=== PATIENT | male | born 1950 | race Caucasian/White ===

== ENCOUNTER 2019-07-19 17:01 | Emergency (ER) | payer MEDICARE, OTHER ==
[~2019-07-19] VITALS: Ht 180.3 cm; Wt 83.9 kg
[2019-07-19] MEDS ORDERED: SODIUM CHLORIDE 0.9% 500 ML IV ONE (17:12)
[2019-07-19 17:20] VITALS: BP 127/81
[2019-07-19 18:15] LABS: Basophils # (auto) 0 uL; Basophils % (auto) 0.6 % (0.0-2.0); Eosinophils # (auto) 0.1 uL; Eosinophils % (auto) 1.9 % (0.0-7.0); Hematocrit 42.3 % (41.0-53.0); Hemoglobin 14.5 g/dL (13.5-17.5); Lymphocytes % (auto) 26.8 % (10.0-50.0); Mean Corpuscular Hemoglobin 30.2 pg (28.0-32.0); Mean Corpuscular Hgb Conc. 34.3 g/dL (32.0-36.0); Mean Corpuscular Volume 88.1 fL (80.0-100.0); Monocytes # (auto) 0.4 uL; Monocytes % (auto) 5.6 % (0.0-12.0); Neutrophils # (auto) 4.8 uL; Neutrophils % (auto) 65.1 % (37.0-80.0); Platelet Count (auto) 180 10^3/uL (140-450); White Blood Cell 7.3 10^3/uL (4.4-10.8)
[2019-07-19 18:32] LABS: Alanine Aminotransferase 25 U/L (16-61); Albumin 3.3 g/dL (3.4-5.0); Anion Gap 6 (5-15); Aspartate Aminotransferase 24 U/L (15-37); BUN/Creatinine Ratio 24.2; Blood Urea Nitrogen 24 mg/dL (7-18); Calcium 8.9 mg/dL (8.5-10.1); Carbon Dioxide 28 mmol/L (21-32); Chloride 107 mmol/L (98-107); GFR African American 96 mL/min; GFR Non-African American 79 mL/min; Glucose 88 mg/dL (74-106); Potassium 4.1 mmol/L (3.5-5.1); Sodium 141 mmol/L (136-145)
[2019-07-19 18:37] LABS: Alkaline Phosphatase 85 U/L (45-117); Bilirubin, Total 0.5 mg/dL (0.2-1.0); Total Protein 7.2 g/dL (6.4-8.2)
== END 2019-07-19 19:06 | disposition home or self-care (01) ==
LOC: EDBD 17:01 → ER 17:09
DX: R42 Dizziness and giddiness (principal); R55 Syncope and collapse; R06.02 Shortness of breath; I10 Essential (primary) hypertension; Z87.891 Personal history of nicotine dependence; Z88.2 Allergy status to sulfonamides; Z86.73 Personal history of transient ischemic attack (TIA), and cerebral infarction without residual deficits
CPT/HCPCS: 36415; 70450; 71045; 80053; 83735; 84484; 85025; 93005; 99284; J7040; 96360

== ENCOUNTER 2024-10-06 22:38 | Inpatient (IN) | payer MEDICARE, OTHER ==
[~2024-10-06] VITALS: Ht 180.3 cm; Wt 97.2 kg
[~2024-10-06 22:38] MED LIST: CLON0.5T3 PO; DONE1TAB88 PO; LISI2.5T47 PO
[2024-10-06] MEDS: SODIUM CHLORIDE 0.9% 500 ML IV ONE (23:30)
[2024-10-06 23:33] VITALS: PULSE 151; RESP 20; O2SAT 95
--- NOTE | 2024-10-06 23:35 | ED.PDOC ---
SOB-HPI HPI Comments HPI: Poor Historian. 74 y/o M c/o wheezing and generalized weakness for 2 weeks, today. states she made him come because he complained of shortness of breath to her at home. However patient himself denies shortness of breath. Patient is a poor historian. Denies any shortness of breath, chest pain, dizziness, lightheadedness, cough, or other associated symptoms or modifiers at this time. Vitals: temperature of 97.5F, pulse of 64, however EKG shows wide QRS complex rate 150 without a pacemaker spikes. respiratory rate of 15, blood pressure of 108/79, SpO2 of 94%RA PMHx: prostat CA -in remission, HTN, TIA, collar bone fracture, anxiety, OCD, dementia, PSHx: prostate removal, pacemaker, lap band surgery Social Hx: former tobacco cigarette use, quite in 1967 Past Medcial History: Past Surgical History: REVIEW OF SYSTEMS: CONSTITUTIONAL: Denies acute: fever, diaphoresis, chills, HEAD: Denies acute: headache, photophobia Eyes: Denies acute: Double vision, vision loss, eye pain, eye discharge. EARS: Denies acute: tinnitus, hearing loss, ear discharge, ear pain, THROAT: Denies acute: sore throat, swelling, difficulty swallowing , pain with swallowing, change in voice. NECK: Denies acute: neck pain, neck swelling, stiff neck. HEART: Denies acute : chest pain, palpitations, LUNGS: Denies acute: cough, hemoptysis ABDOMEN: Denies acute: abdominal pain, Nausea, Vomiting, diarrhea, melena , hematemesis, hematochezia SKIN: Denies acute: rash, redness, lesions, itchiness. EXTREMITIES: Denies acute: calf pain, numbness, tingling, weakness, denies pain in extremity. Denies acute: Low back pain. Neuro: Denies acute: focal neurological deficit, motor or sensory focal neurological deficit, tremors, seizure like activity, confusion, dizziness, change in mental status, loss of bowel or bladder function, cauda equina like symptoms. : Denies acute: dysuria, hematuria, flank pain, increase in urinary frequency. PSYCH: Denies acute: hallucination, suicidal ideation, homicidal ideation. PHYSICAL EXAM: General: no acute distress, awake and alert. Head: normocephalic, atraumatic. Neck: supple, trachea is midline, no swelling. Throat: Normal phonation. Eyes:, no erythema, no purulent discharge, no proptosis, no icterus. Heart: regular tachycardic, no significant murmur appreciated. Lungs: Slight respiratory distress, Able to speak in full sentences. No wheezing, no rhonchi, no crackles. No stridors Clear to auscultation bilaterally. Abdomen: non tender to palpation, non distended, soft, no guarding, no rebound, + bowel sounds. Neuro: Awake, Alert, oriented to name, self, situation, follows commands GCS=15. Speech is normal. Skin: no petechia, no purpura, no cyanosis, non-pale, not jaundice. Lower extremities: --trace bilateral - Pitting edema no deformity, no focal swelling, no calf TTP. Makes eye contact. moves all four extremities. Face: no apparent facial droop. ly. Ambulating in the ED independently. Chief Complaint: Shortness of Breath Time Seen by MD: 23:20 Reviewed notes: Nurses Notes, Medications, Allergies Information Source: Patient Mode of Arrival: Ambulatory Past Medical History PAST MEDICAL HISTORY: Cancer (prostate CA), HTN, TIA Surgical History: Pacemaker Surgical History (Other): prostate removal Family History Family History: Family hx of HTN, Family hx of stroke Social History Smoker: Quit Greater Than 1 Year (in 1967) Alcohol: Occasionally Drugs: Denies Drug Use Lives In: Home EKG EKG : Pulse Rate (adult): 155 [place]: Normal Cardiac Rhythm: ST Block: None Hypertrophy: None ST: Normal Was a procedure done? Was a procedure done?: No Differential Dx Differential Diagnosis: Other (DDx include ACS, unstable angina, anxiety, PE, pneumothroax, neoplasm, cardiac ischemia, COPD, asthma, CHF, pleural effusion, tobacco abuse, pneumonia, hypoxia, hypercapnia, anemia., infection/sepsis., pulmonary edema. Asthma, Cardiac tamponade, infection.) X-Ray, Labs, Meds, VS Vital Signs Date Time Temp Pulse Resp B/P (MAP) Pulse Ox O2 Delivery O2 Flow Rate FiO2 10/07/24 01:01 120 10/07/24 01:01 120 114/71 10/07/24 01:00 120 22 104/68 (80) 97 10/07/24 00:47 114/72 10/07/24 00:00 75 17 114/72 (86) 10/07/24 00:00 112 10/06/24 23:50 149 121/74 10/06/24 23:35 155 10/06/24 23:33 151 20 95 Room Air* 0 21 10/06/24 23:33 98.8 151 20 121/74 (90) 95 98.8 10/06/24 23:15 155 10/06/24 23:00 97.5 64 15 108/79 (89) 94 Lab Test 10/07/24 02:04 10/07/24 01:33 10/07/24 00:15 10/06/24 23:15 Range/Units Influenza Type A Antigen Negative Negative Influenza Type B Antigen Negative Negative SARS-CoV-2 Antigen (Rapid) Negative NEGATIVE Urine Color Light-yellow Yellow Urine Clarity Clear Clear Urine pH 5.5 5.0-9.0 Urine Specific [place] 1.027 1.001-1.035 Urine Protein Negative Negative Urine Ketones Negative Negative Urine Blood Negative Negative /uL Urine Nitrite Negative Negative Urine Bilirubin Negative Negative Urine Urobilinogen Normal Negative mg/dL Urine Leukocyte Esterase Negative Negative /uL Urine RBC 1 0 - 3 /hpf Urine Microscopic WBC < 1 0-3 /HPF Urine Squamous Epithelial Cells None seen <5 /hpf Urine Bacteria None seen None Seen /hpf Urine Mucus Few None Seen Urine Glucose Normal Normal mg/dL Troponin I High Sensitivity 112 *H 119 *H </=54 ng/L White Blood Count 9.9 4.4-10.8 10^3/uL Red Blood Count 4.41 L 4.5-5.90 10^6/uL Hemoglobin 13.7 13.5-17.5 g/dL Hematocrit 40.5 L 41.0-53.0 % Mean Corpuscular Volume 91.9 80.0-100.0 fL Mean Corpuscular Hemoglobin 31.1 28.0-32.0 pg Mean Corpuscular Hemoglobin Concent 33.9 32.0-36.0 g/dL Red Cell Distribution Width 14.7 H 11.8-14.3 % Platelet Count 203 140-450 10^3/uL Mean Platelet Volume 9.3 6.9-10.8 fL Neutrophils (%) (Auto) 76.7 37.0-80.0 % Lymphocytes (%) (Auto) 15.5 10.0-50.0 % Monocytes (%) (Auto) 6.1 0.0-12.0 % Eosinophils (%) (Auto) 1.0 0.0-7.0 % Basophils (%) (Auto) 0.7 0.0-2.0 % Neutrophils # (Auto) 7.6 1.6-8.6 10 ^3/uL Lymphocytes # (Auto) 1.5 0.4-5.4 10 ^3/uL Monocytes # (Auto) 0.6 0-1.3 10 ^3/uL Eosinophils # (Auto) 0.1 0-0.8 10 ^3/uL Basophils # (Auto) 0.1 0-0.2 10 ^3/uL Nucleated Red Blood Cells 0.1 % D-Dimer, Quantitative 0.59 H 0.0-0.49 mg/L FEU Sodium Level 140 136-145 mmol/L Potassium Level 4.0 3.5-5.1 mmol/L Chloride Level 107 98-107 mmol/L Carbon Dioxide Level 23 20-31 mmol/L Anion Gap 10 5-15 Blood Urea Nitrogen 20 9-23 mg/dL Creatinine 1.13 0.700-1.30 mg/dL Glomerular Filtration Rate Calc 68 >90 mL/min BUN/Creatinine Ratio 17.7 10.0-20.0 Serum Glucose 137 H 74-106 mg/dL Lactic Acid Level 1.3 0.4-2.0 mmol/L Calcium Level 10.0 8.7-10.4 mg/dL Magnesium Level 1.9 1.6-2.6 mg/dL Total Bilirubin 1.1 H 0.2-1.0 mg/dL Aspartate Amino Transferase (AST) 31 13-40 U/L Alanine Aminotransferase (ALT) 20 7-40 U/L Alkaline Phosphatase 79 46-116 U/L B-Type Natriuretic Peptide 1454.72 0-100 pg/mL Total Protein 7.1 5.7-8.2 g/dL Albumin 4.4 3.2-4.8 g/dL Current Medications Medications (Trade) Dose Ordered Sig/Estefania Route Start Time Stop Time Status Last Admin Metoprolol Tartrate (Lopressor) 5 mg ONCE ONCE IV 10/06/24 23:30 10/06/24 23:31 DC 10/06/24 23:50 Furosemide (Lasix Injection) 60 mg ONCE ONCE IV 10/07/24 00:15 10/07/24 00:16 DC 10/07/24 00:47 Aspirin 325 mg ONCE ONCE PO 10/07/24 00:45 10/07/24 00:46 DC 10/07/24 00:49 Time of 1ST Reevaluation: 23:20 Reevaluation 1ST: Unchanged Time of 2ND Reevaluation: 01:02 ( The case was discussed with the admitting team (HPI, physical exam, labs and diagnostic tests that were available at the time of disposition, ED course, treatment plan) on the phone. They agreed to admit the patient to their service and assume care of this patient from this point forward. Nurse practitioner Tiffanie) Time of 3RD Reevaluation: 02:00 (Case discussed with the gun stock maker on the phone Dr. Melton reviewed both EKGs the 1st and the 2nd one. He agrees with our management and recommends to continue the same treatment.) Reevaluation 3RD: Improved Patient Education/Counseling: Diagnosis, Treatment Family Education/Counseling: No Family Present Comments Patient presented with the above HPI. respiratory workup was initiated. patient was found with the above mentioned diagnosis. the following medications were ordered: metoprolol, IV fluids, Lasix, aspirin the following tests were ordered: CMP, CBC, UA, EKG, CXR, troponin, BNP, lactic acid, D-dimer, magnesium Patient ED course and VS have been stabilized. Patient has been reassessed in the ED and remained in a stable condition. Pertinent incidental findings were discussed with the patient and/or family. Patient/family voices understanding and is agreeable with plan. Patient has been observed in the ED adequate length of time to insure improvement/stability. Escalation of care considered: Consideration of escalation to observation or admission Patient was ADMITTED to the medicine team for further evaluation and treatment of their presentation. Cardiology was consulted. All the reports of any imaging studies that were ordered by myself were reviewed by myself. Departure 1 Departure Time of Disposition: 00:05 Impression: Primary Impression: CHF exacerbation Additional Impressions: Atrial fibrillation Tachycardia Elevated troponin Elevated brain natriuretic peptide (BNP) level Disposition: ADMITTED INPATIENT Admit to: Tele Condition: Guarded Discharged With: Self, Relative Critical Care Note Critical Care Time?: Yes (45 min-critical care time only) Heart Score Heart Score: Heart Score Response (Comments) Value History Moderate Suspicious [address]-Deviation 2 Age >65 2 Risk Factors 1 or 2 risk factors 1 Troponin 1-2 x's Normal limit 1 Total 7 I personally scribed for EDNA BONILLA DO ([email or web address]) on 10/06/24 at 23:35. Electronically submitted by Marcos Meadows ([email or web address]). EDNA BONILLA DO Oct 06, 2024 23:35
[2024-10-06 23:41] LABS: Basophils # (auto) 0.1 10 ^3/uL (0-0.2); Basophils % (auto) 0.7 % (0.0-2.0); Eosinophils # (auto) 0.1 10 ^3/uL (0-0.8); Hematocrit 40.5 % (41.0-53.0); Hemoglobin 13.7 g/dL (13.5-17.5); Lymphocytes # (auto) 1.5 10 ^3/uL (0.4-5.4); Lymphocytes % (auto) 15.5 % (10.0-50.0); Mean Corpuscular Hemoglobin 31.1 pg (28.0-32.0); Mean Corpuscular Hgb Conc. 33.9 g/dL (32.0-36.0); Mean Corpuscular Volume 91.9 fL (80.0-100.0); Monocytes # (auto) 0.6 10 ^3/uL (0-1.3); Monocytes % (auto) 6.1 % (0.0-12.0); Neutrophils # (auto) 7.6 10 ^3/uL (1.6-8.6); Neutrophils % (auto) 76.7 % (37.0-80.0); Nucleated Red Blood Cells % 0.1 %; Platelet Count (auto) 203 10^3/uL (140-450); Red Blood Cells 4.41 10^6/uL (4.5-5.90); Red Cell Distribution Width 14.7 % (11.8-14.3); White Blood Cell 9.9 10^3/uL (4.4-10.8)
[2024-10-06] MEDS: METOPROLOL TARTRATE 1MG/1ML-5ML VIAL IV ONE (23:50)
[2024-10-07] VITALS (7 sets, daily range): BP systolic 111–131; BP diastolic 48–84; PULSE 80–147; RESP 13–21; TEMP 97.7–98.3; O2SAT 93–99
[2024-10-07 00:02] LABS: Alanine Aminotransferase 20 U/L (7-40); Albumin 4.4 g/dL (3.2-4.8); Alkaline Phosphatase 79 U/L (46-116); Anion Gap 10 (5-15); Aspartate Aminotransferase 31 U/L (13-40); BUN/Creatinine Ratio 17.7 (10.0-20.0); Bilirubin, Total 1.1 mg/dL (0.2-1.0); Blood Urea Nitrogen 20 mg/dL (9-23); Carbon Dioxide 23 mmol/L (20-31); Chloride 107 mmol/L (98-107); Magnesium 1.9 mg/dL (1.6-2.6); Sodium 140 mmol/L (136-145); Total Protein 7.1 g/dL (5.7-8.2)
[2024-10-07 00:05] LABS: Glucose 137 mg/dL (74-106)
[2024-10-07] MEDS: IOHEXOL 350 MG/ML 100ML IJ ONE (00:20)
--- NOTE | 2024-10-07 00:30 | DVH ---
CHEST RADIOGRAPH Indication: sob Technique: Single frontal view of the chest was obtained COMPARISON: None FINDINGS: Lines and Tubes: Pacemaker/AICD noted overlying left chest wall. Lungs: Clear Pleura: No effusion. No pneumothorax. Cardiomediastinal contours: [id number] cardiomegaly. Bones: Unremarkable IMPRESSION: No acute abnormality identified. Cardiomegaly.
[2024-10-07] MEDS: FUROSEMIDE 100 MG/10ML VIAL IV ONE (00:47)
[2024-10-07] MEDS: ASPirin 325 MG TAB PO ONE (00:49)
--- NOTE | 2024-10-07 01:10 | DVH ---
CTA Chest with intravenous contrast INDICATION: sob COMPARISON: None TECHNIQUE: Multidetector spiral CTA of the chest was performed of the chest with intravenous contrast . PULMONARY ANGIOGRAPHY PROTOCOL was utilized using a bolus-tracking technique centered on the main p ulmonary artery. Axial, coronal and sagittal multiplanar and MIP reformats were performed. Radiation dose : 1. Chest: CTDI volume is 32.56 mGy. Dose-length product is 1381.79 mGy*cm The dose indicators for CT are the volume computed tomography (CT) dose index (CTDIvol) and the dose length product (DLP), and are measured in units of mGy and mGy-cm, respectively. These indicators are not patient dose, but values generated from the CT scanner acquisition factors. The report includes radiation exposure data for exposures received during this examination. Findings: Pulmonary artery: No evidence of pulmonary embolism. Lower neck: No abnormality demonstrated. Lungs: No focal consolidation, pleural effusion or pneumothorax. Mild subsegmental atelectasis at rig ht lung base. Heart/Vascular Structures: Thoracic aorta demonstrates mild atherosclerotic changes but is non aneury smal. [id number] cardiomegaly. No pericardial effusion. Lymph Nodes: No lymphadenopathy Musculoskeletal: No acute osseous abnormality. Soft tissues: Unremarkable. Upper abdomen: Limited portions of the upper abdomen are unremarkable. Prior gastric surgery. IMPRESSION: 1. No evidence of pulmonary embolism. 2. No acute thoracic finding.
[2024-10-07 01:46] LABS: Urine Bacteria None Seen /hpf (None Seen)
[2024-10-07 02:00] LABS: Urine Blood Negative /uL (Negative); Urine Clarity Clear (Clear); Urine Color Light-Yellow (Yellow); Urine Mucus FEW (None Seen); Urine Protein, UAD Negative (Negative); Urine Specific Gravity 1.027 (1.001-1.035); Urine Squamous Epithelial Cell None Seen /hpf (<5); Urine Urobilinogen Normal (Negative); Urine WBC < 1 /HPF (0-3); Urine pH 5.5 (5.0-9.0)
[2024-10-07] MEDS ORDERED: HYDROcodone-ACET 5/325MG TAB PO PRN (02:30)
[2024-10-07] MEDS ORDERED: ONDANSETRON HCL 4 MG/2 ML VIAL IV PRN (02:30)
[2024-10-07] MEDS ORDERED: MORPHINE SULFATE INJ 2 MG/ml SYRG IV PRN ×2 (02:30→09:00)
[2024-10-07] MEDS ORDERED: NITROGLYCERIN 0.4 MG SL TAB SL PRN (02:30)
--- NOTE | 2024-10-07 02:47 | DVHHP2 ---
Admitting Diagnosis: NSTEMI, CP, CHF new onset History of Present Illness History Source: Patient Exam Limitations: No limitations HPI Mr. Todd Hair is a 74 yo male with a known history of prostate CA with prostate removal, hypertension, TIA, anxiety, pacemaker placement, OCD, Anxiety, Dementia. Patient presents with a chief complaint of generalized weakness, shortness of breath. Patient endorses he has been having generalized weakness with shortness of breath and non radiating right sided chest pain. Patient denies any history of CHF. Patient BNP 1,454 Troponin 119, CXR: Cardiomegaly , d dimer 0.59 however CTA chest was negative for evidence of a pulmonary embolism. Patient currently denies headaches, dizziness, palpitations, nausea, vomiting, Patient admitted for further evaluation. Past Medical History Cardiac: HTN Central Nervous System: TIA Psychiatric: Anxiety, Other (OCD) Past Surgical History: Pacemaker, Other (prostectomy) Smoker: No Hx (Negative) Alocohol: None Drugs: None Lives with: With family Domestic Violence: Neg Review of Systems Constitutional: Weakness (generalized) Ears, Nose, & Throat: No symptom reported Eyes: No symptom reported Pulmonary/Respiratory: Dyspnea Cardiovascular: Chest Pain Gastrointestinal: No symptom reported Genitourinary: No symptom reported Musculoskeletal: No symptom reported Skin: No symptom reported Psychiatric: No symptom reported Endocrine: No symptom reported Hemotologic/Lymphatic: No symptom reported H&P Exam Vital Signs Vital Signs Date Time Temp Pulse Resp B/P (MAP) Pulse Ox O2 Delivery O2 Flow Rate FiO2 10/07/24 01:01 120 10/07/24 01:01 114/71 10/07/24 01:00 22 97 10/06/24 23:33 Room Air* 0 21 10/06/24 23:33 98.8 98.8 General Appeara: Well developed, Well nourished Head Exam: Normal inspection Neck Exam: Normal inspection, Non-tender, Normal alignment Eye Exam: bilateral eye Normal inspection, bilateral eye PERRL, bilateral eye EOMI Ear Exam: bilateral ear Auricle normal Nasal Exam: Normal inspection Mouth: Normal Inspection Pulmonary/Respiratory: Normal inspection, Normal breath sounds, Chest non- tender, Lungs clear Cardiovascular/Chest: Normal inspection, Regular rate, Normal Rhythm Peripheral Pulses: 2+ dorsalis pedis (R), 2+ dorsalis pedis (L), 2+ Radial (R), 2+ Radial (L) Abdominal Exam: Normal bowel sounds, Soft, No tenderness Rectal Exam: Deferred Back Exam: Normal 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: Normal hearing, Normal speech, PERRL Motor/Sensory: Normal sensory function, Normal motor function Neuro/Mental St: Alert, Oriented Appearance: Appropriate appearance, Appropriate insight Eye contact/ Speech: Cooperative, Good eye contact, Normal speech Thoughts/Psych: Normal thought pattern Skin Exam: Normal inspection, Normal color, Warm/dry Labs/Xrays Labs Test 10/07/24 02:28 10/07/24 02:04 10/07/24 01:33 10/06/24 23:15 Range/Units Urine Color Light-yellow Yellow Urine Clarity Clear Clear Urine pH 5.5 5.0-9.0 Urine Specific [place] 1.027 1.001-1.035 Urine Protein Negative Negative Urine Ketones Negative Negative Urine Blood Negative Negative /uL Urine Nitrite Negative Negative Urine Bilirubin Negative Negative Urine Urobilinogen Normal Negative mg/dL Urine Leukocyte Esterase Negative Negative /uL Urine RBC 1 0 - 3 /hpf Urine Microscopic WBC < 1 0-3 /HPF Urine Squamous Epithelial Cells None seen <5 /hpf Urine Bacteria None seen None Seen /hpf Urine Mucus Few None Seen Urine Glucose Normal Normal mg/dL White Blood Count 9.9 4.4-10.8 10^3/uL Red Blood Count 4.41 L 4.5-5.90 10^6/uL Hemoglobin 13.7 13.5-17.5 g/dL Hematocrit 40.5 L 41.0-53.0 % Mean Corpuscular Volume 91.9 80.0-100.0 fL Mean Corpuscular Hemoglobin 31.1 28.0-32.0 pg Mean Corpuscular Hemoglobin Concent 33.9 32.0-36.0 g/dL Red Cell Distribution Width 14.7 H 11.8-14.3 % Platelet Count 203 140-450 10^3/uL Mean Platelet Volume 9.3 6.9-10.8 fL Neutrophils (%) (Auto) 76.7 37.0-80.0 % Lymphocytes (%) (Auto) 15.5 10.0-50.0 % Monocytes (%) (Auto) 6.1 0.0-12.0 % Eosinophils (%) (Auto) 1.0 0.0-7.0 % Basophils (%) (Auto) 0.7 0.0-2.0 % Neutrophils # (Auto) 7.6 1.6-8.6 10 ^3/uL Lymphocytes # (Auto) 1.5 0.4-5.4 10 ^3/uL Monocytes # (Auto) 0.6 0-1.3 10 ^3/uL Eosinophils # (Auto) 0.1 0-0.8 10 ^3/uL Basophils # (Auto) 0.1 0-0.2 10 ^3/uL Nucleated Red Blood Cells 0.1 % D-Dimer, Quantitative 0.59 H 0.0-0.49 mg/L FEU Sodium Level 140 136-145 mmol/L Potassium Level 4.0 3.5-5.1 mmol/L Chloride Level 107 98-107 mmol/L Carbon Dioxide Level 23 20-31 mmol/L Anion Gap 10 5-15 Blood Urea Nitrogen 20 9-23 mg/dL Creatinine 1.13 0.700-1.30 mg/dL Glomerular Filtration Rate Calc 68 >90 mL/min BUN/Creatinine Ratio 17.7 10.0-20.0 Serum Glucose 137 H 74-106 mg/dL Lactic Acid Level 1.3 0.4-2.0 mmol/L Calcium Level 10.0 8.7-10.4 mg/dL Magnesium Level 1.9 1.6-2.6 mg/dL Total Bilirubin 1.1 H 0.2-1.0 mg/dL Aspartate Amino Transferase (AST) 31 13-40 U/L Alanine Aminotransferase (ALT) 20 7-40 U/L Alkaline Phosphatase 79 46-116 U/L B-Type Natriuretic Peptide 1454.72 0-100 pg/mL Total Protein 7.1 5.7-8.2 g/dL Albumin 4.4 3.2-4.8 g/dL Assessment/Plan Problem List: (1) Elevated brain natriuretic peptide (BNP) level (2) CHF exacerbation (3) Elevated troponin Plan This is a 74 yo male with known history of hypertension, TIA, anxiety, dementia, OCD, prostate cancer , prostectomy, pacemaker placement who presents to the hospital with generalized weakness, shortness of breath. Patient found to have 1. Elevated troponin levels 2. Elevated BNP, Cardiomegaly 3. CHF new onset 4. CP Plan Admit Telemetry Cardiology consultation, 2D echocardiogram, serial troponin levels, ASA, Statin, Beta wojciech IV diuresis Furosemide Monitor electrolytes replenish as needed Analgesic as needed Supplemental oxygen as needed to keep 02 saturations above 92% Discussed all above with patient who verbalized agreement and understanding of care plan. All questions were answered Discussed assessment and care plan with supervising MD. Patient is seen and evaluated by me this afternoon. Discussed with the nurse at bedside. Patient is seen evaluated and admitted by nurse practitioner this morning. I agree with her evaluation, documentation, assessment and care plan as outlined. Given patient's anxiety I will start him on oral Xanax. Patient also has history of dementia with sundowning and agitation. Plan discussed with: Patient, Other Code Visit Code Visit Total Time (mins): 45 ED BOOTH Oct 07, 2024 02:47 ANASTASIIA YOUSSEF MD Oct 07, 2024 13:57
[2024-10-07 02:54] LABS: Rapid Influenza A Negative (Negative); Rapid Influenza B Negative (Negative)
[2024-10-07 02:55] LABS: COVID19 ANTIGEN SOFIA FIA NEGATIVE (NEGATIVE)
[2024-10-07] MEDS: ENOXAPARIN SOD 100 MG/1 ML SYRINGE SC SCH (03:32)
[2024-10-07 06:31] LABS: Chloride 104 mmol/L (98-107); Potassium 3.7 mmol/L (3.5-5.1); Sodium 142 mmol/L (136-145)
[2024-10-07 06:32] LABS: Anion Gap 11 (5-15); Calcium 9.7 mg/dL (8.7-10.4); Carbon Dioxide 27 mmol/L (20-31)
[2024-10-07 06:37] LABS: BUN/Creatinine Ratio 15.8 (10.0-20.0); Blood Urea Nitrogen 19 mg/dL (9-23)
[2024-10-07 06:38] LABS: Glucose 113 mg/dL (74-106)
--- NOTE | 2024-10-07 06:45 | ECG ---
[facility] Test Date: 2024-10-06 Test Time: 23:15:43 Pat Name: MALCOM NORTON Department: ER Room: [address] [place] [address] Gender: M [employer] Driver: : 1950 Requested By: EDNA BONILLA Order Number: [id number] Reading MD: Blade Peguero Measurements Intervals [place] Rate: 155 P: 0 CO: 0 QRS: 3 QRSD: 178 T: 11 QT: 330 QTc: 530 Interpretive Statements Extreme tachycardia with wide complex, no further rhythm analysis attempted Electronically Signed On 10-07-2024 13:28:29 PST by Blade Peguero Please click the below link to view image of tracing.
[2024-10-07] MEDS ORDERED: LEVALBUTEROL HCL 1.25 MG/3 ML NEB NEB SCH (09:00)
--- NOTE | 2024-10-07 10:05 | DVHINCON2 ---
Date Seen: Oct 07, 2024 Referring Physician CEDRIC Emmanuel Reason for Consultation Elevated trops History of Present Illness This is a 74-year-old man who presented to the emergency room with a chief complaint of generalized weakness for two weeks. The patient complains of generalized weakness associated with chest congestion, a productive cough with yellow sputum, wheezing, and chest pain described as right-sided and with origins after attending a chiropractor's session where he was adjusted. He is somewhat a poor historian. Denies following up in the outpatient setting with the primary custom miller and does not remember any invasive cardiac procedures in the past. He underwent a 12 lead electrocardiogram revealing a wide complex tachycardia rhythm up to the 140s bpm. Denies palpitations, dizziness, or syncopal events. Troponin levels have remained flat in the 100s ng/L. Significant medical history includes congestive heart failure, status post Bi- ventricular ICD (Medtronic), hypertension, dyslipidemia, TIA, dementia, and anxiety. Past Medical History Past medical history reviewed. No other significant than mentioned above. Past Surgical History Biventricular ICD (Medtronic) Family History Family history reviewed. Social History Denies the use of illicit drugs, alcohol, or tobacco use. Allergies: Coded Allergies: Sulfa Antibiotics (Verified Allergy, Severe, 07/19/19) Home Meds Home medications reviewed. Current Medications Current Medications Medications (Trade) Dose Ordered Sig/Estefania Route PRN Reason Start Time Stop Time Status Last Admin Nitroglycerin (Ntrostat Sublingual) 0.4 mg Q5MINP PRN SL FOR CHEST PAIN 10/07/24 02:30 Morphine Sulfate 2 mg Q30M PRN IV FOR CHEST PAIN 10/07/24 02:30 Furosemide (Lasix Injection) 40 mg DAILY IV 10/07/24 10:00 Ondansetron HCl (Zofran) 4 mg Q6HP PRN IV NAUSEA OR VOMITING 10/07/24 02:30 Acetaminophen/ Hydrocodone Bitart ([place] 5/325MG Tab) 1 tab Q6HPRN PRN PO PAIN SCALE 1 THRU 6 10/07/24 02:30 Acetaminophen (Tylenol Tablet) 650 mg Q6HPRN PRN PO PAIN SCALE 1-3 OR TEMP>100.4 10/07/24 02:30 Famotidine (Pepcid Tablet) 20 mg BID PO 10/07/24 10:00 Aspirin (Ecotrin Enteric Coated Tablet) 81 mg DAILY PO 10/07/24 10:00 Enoxaparin Sodium (Lovenox) 100 mg Q12H SC 10/07/24 03:00 10/07/24 03:32 Metoprolol Tartrate (Lopressor Tablet) 12.5 mg BID PO 10/07/24 10:00 Morphine Sulfate 2 mg Q4HPRN PRN IV MODERATE PAIN (4-6 PAIN SCALE) 10/07/24 09:00 Levalbuterol HCl (Xopenex Medneb) 0.625 mg Q4HP NEB 10/07/24 09:00 10/07/24 09:15 DC Levalbuterol HCl (Xopenex Medneb) 0.625 mg Q4HP NEB 10/07/24 10:00 Review of Systems Constitutional: Generalized weakness Ears, Nose, & Throat: No symptom reported Eyes: No symptom reported Neurological: No symptoms reported Pulmonary/Respiratory: SOB, productive cough with yellow phlegm Cardiovascular: No symptom reported Gastrointestinal: No symptom reported Genitourinary: No symptom reported Musculoskeletal: No symptom reported Skin: No symptom reported Psychiatric: No symptom reported Endocrine: No symptom reported Hemotologic/Lymphatic: No symptom reported Vital Signs Vital Signs Date Time Temp Pulse Resp B/P (MAP) Pulse Ox O2 Delivery O2 Flow Rate FiO2 10/07/24 09:02 98.3 127 13 111/48 (69) 93 98.3 10/07/24 09:02 Nasal Cannula* 2 28 Physical Exam General Appearance: Cooperative. Chronically ill. [id number] acute r espiratory distress Head Exam: Normal inspection Neck Exam: Normal inspection. Non-tender. Normal alignment Pulmonary/Respiratory: Chest non-tender. Crackles to bilateral breath sounds Cardiovascular/Chest: Regular rate and rhythm. Wide complex tachycardia. No murmurs. No JVD. Peripheral Pulses: 2+ Radial (R). 2+ Radial (L). 2+ Pedal (R). 2+ Pedal (L) Abdominal Exam: Normal bowel sounds. Soft. Ankle Exam: Negative ankle edema Lower extremities: Negative lower extremity edema Neuro/Mental Status: A&O x2. Rambling thoughts Thoughts/Psych: Normal thought pattern. Anxious Appearance: [id number] acute respiratory distress Skin Exam: Normal inspection. Normal color. Warm. Dry Labs/Diagnostic Data Labs Test 10/07/24 05:53 10/07/24 02:04 10/07/24 01:33 10/06/24 23:15 Range/Units Sodium Level 142 136-145 mmol/L Potassium Level 3.7 3.5-5.1 mmol/L Chloride Level 104 98-107 mmol/L Carbon Dioxide Level 27 20-31 mmol/L Anion Gap 11 5-15 Blood Urea Nitrogen 19 9-23 mg/dL Creatinine 1.20 0.700-1.30 mg/dL Glomerular Filtration Rate Calc 63 >90 mL/min BUN/Creatinine Ratio 15.8 10.0-20.0 Serum Glucose 113 H 74-106 mg/dL Calcium Level 9.7 8.7-10.4 mg/dL Troponin I High Sensitivity 132 *H </=54 ng/L Influenza Type A Antigen Negative Negative Influenza Type B Antigen Negative Negative SARS-CoV-2 Antigen (Rapid) Negative NEGATIVE Urine Color Light-yellow Yellow Urine Clarity Clear Clear Urine pH 5.5 5.0-9.0 Urine Specific [place] 1.027 1.001-1.035 Urine Protein Negative Negative Urine Ketones Negative Negative Urine Blood Negative Negative /uL Urine Nitrite Negative Negative Urine Bilirubin Negative Negative Urine Urobilinogen Normal Negative mg/dL Urine Leukocyte Esterase Negative Negative /uL Urine RBC 1 0 - 3 /hpf Urine Microscopic WBC < 1 0-3 /HPF Urine Squamous Epithelial Cells None seen <5 /hpf Urine Bacteria None seen None Seen /hpf Urine Mucus Few None Seen Urine Glucose Normal Normal mg/dL White Blood Count 9.9 4.4-10.8 10^3/uL Red Blood Count 4.41 L 4.5-5.90 10^6/uL Hemoglobin 13.7 13.5-17.5 g/dL Hematocrit 40.5 L 41.0-53.0 % Mean Corpuscular Volume 91.9 80.0-100.0 fL Mean Corpuscular Hemoglobin 31.1 28.0-32.0 pg Mean Corpuscular Hemoglobin Concent 33.9 32.0-36.0 g/dL Red Cell Distribution Width 14.7 H 11.8-14.3 % Platelet Count 203 140-450 10^3/uL Mean Platelet Volume 9.3 6.9-10.8 fL Neutrophils (%) (Auto) 76.7 37.0-80.0 % Lymphocytes (%) (Auto) 15.5 10.0-50.0 % Monocytes (%) (Auto) 6.1 0.0-12.0 % Eosinophils (%) (Auto) 1.0 0.0-7.0 % Basophils (%) (Auto) 0.7 0.0-2.0 % Neutrophils # (Auto) 7.6 1.6-8.6 10 ^3/uL Lymphocytes # (Auto) 1.5 0.4-5.4 10 ^3/uL Monocytes # (Auto) 0.6 0-1.3 10 ^3/uL Eosinophils # (Auto) 0.1 0-0.8 10 ^3/uL Basophils # (Auto) 0.1 0-0.2 10 ^3/uL Nucleated Red Blood Cells 0.1 % D-Dimer, Quantitative 0.59 H 0.0-0.49 mg/L FEU Lactic Acid Level 1.3 0.4-2.0 mmol/L Magnesium Level 1.9 1.6-2.6 mg/dL Total Bilirubin 1.1 H 0.2-1.0 mg/dL Aspartate Amino Transferase (AST) 31 13-40 U/L Alanine Aminotransferase (ALT) 20 7-40 U/L Alkaline Phosphatase 79 46-116 U/L B-Type Natriuretic Peptide 1454.72 0-100 pg/mL Total Protein 7.1 5.7-8.2 g/dL Albumin 4.4 3.2-4.8 g/dL Assessment Wide complex tachycardia Acute on chronic decompensated HFrEF, NYHA class IV NSTEMI, likely type 2 secondary to above Presence of biventricular ICD (Medtronic) Hypertension Dyslipidemia HX of TIA Dementia Plan/Recommendation We will continue the following plan/recommendations (Dr. Peguero): * Echocardiogram to evaluate cardiac function * Antiarrhythmic agent, initiate amiodarone drip per protocol * Preload and afterload reduction as tolerated * Strict I&Os. Daily weight. Fluid restrictions * Initiate GDMT for CHF and uptitrate as tolerated * Monitor ECG changes closely and notify * Bi-Ventricular AICD interrogation * DVT/VTE prophylaxis Thank you for allowing us to participate in this patient's care. Please call if you have any questions or concerns. This medical document was created using an electronic medical record system with voice recognition software and computerized dictation system. Although this document has been carefully reviewed, there might still be some phonetic and typographical errors. Occasional wrong-word or ``sound-alike substitutions may have occurred due to the inherent limitations of voice recognition software. These areas are purely typographical due to imperfections of the software programs and do not reflect any compromise in the patient's medical care. Please read the chart carefully and recognize, using context, where these substitutions have occurred. Plan discussed with: Patient, Other NYHA Physical activity limitations: Class4(Severe)discomfort (w any activit,symptoms at rest) Date of Service: Oct 07, 2024 Billing Provider: JORGE LOUIS Cardiology Common Codes: [id number] INP/OBS CARE (High) JORGE LOUIS Oct 07, 2024 10:05
[2024-10-07] MEDS: LEVALBUTEROL HCL 1.25 MG/3 ML NEB NEB SCH (10:08)
[2024-10-07] MEDS: FUROSEMIDE 40 MG/4 ML VIAL IV SCH ×2 (10:54→18:05)
[2024-10-07] MEDS: ASPirin-EC 81 mg tab PO SCH (10:55)
[2024-10-07] MEDS: METOPROLOL TARTRATE 25 MG TAB PO SCH (10:56)
[2024-10-07] MEDS: POTASSIUM CHL 20 Meq TABLET PO ONE (10:56)
[2024-10-07] MEDS: FAMOTIDINE 20 MG TAB PO SCH (10:56)
[2024-10-07] MEDS: LORazepam 2MG/ML-1ML VIAL IV ONE (10:58)
[2024-10-07 11:01] LABS: Triglycerides 60 mg/dL (< 150)
[2024-10-07 11:03] LABS: Cholesterol 186 mg/dL (< 200); HDL Cholesterol 56 mg/dL (40-59)
[2024-10-07 11:09] LABS: LDL Cholesterol 126 mg/dL (< 100)
[2024-10-07] MEDS: MAGNESIUM SULFATE 1GM/100ML 100 ML IV ONE (11:12)
[2024-10-07] MEDS: AMIODARONE BOLUS KIT 100 ML IV ONE (11:14)
[2024-10-07] MEDS: AMIODARONE 360mg/200mL PREMIX 200 ML IV ONE (11:30)
[2024-10-07] MEDS ORDERED: LEVALBUTEROL HCL 1.25 MG/3 ML NEB NEB PRN (14:00)
[2024-10-07] MEDS: ALPRAZolam 0.25 MG TAB PO PRN (15:16)
--- NOTE | 2024-10-07 15:29 | ECG ---
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
[2024-10-07] MEDS: AMIODARONE 360mg/200mL PREMIX 200 ML IV SCH (17:13)
[2024-10-07] MEDS: POTASSIUM CHL 20 Meq TABLET PO SCH (22:42)
[2024-10-08] VITALS (9 sets, daily range): BP systolic 109–119; BP diastolic 69–76; PULSE 68–77; RESP 17–20; TEMP 36.6; O2SAT 88–98
[2024-10-08 08:17] LABS: Anion Gap 10 (5-15); Carbon Dioxide 29 mmol/L (20-31); Chloride 101 mmol/L (98-107); Potassium 3.9 mmol/L (3.5-5.1); Sodium 140 mmol/L (136-145)
[2024-10-08 08:18] LABS: Calcium 9.4 mg/dL (8.7-10.4)
[2024-10-08 08:23] LABS: BUN/Creatinine Ratio 14.6 (10.0-20.0); Blood Urea Nitrogen 19 mg/dL (9-23)
[2024-10-08 08:24] LABS: Glucose 112 mg/dL (74-106)
[2024-10-08] MEDS: ENOXAPARIN SOD 40 MG/0.4 ML SYRINGE SC SCH (09:34)
[2024-10-08] MEDS: EMPAGLIFLOZIN 10 MG TAB PO SCH (09:35)
[2024-10-08] MEDS ORDERED: LISINOPRIL 5 MG TAB PO SCH (10:00)
[2024-10-08] MEDS ORDERED: SPIRONOLACTONE 25 MG TAB PO SCH (10:00)
--- NOTE | 2024-10-08 12:18 | DVHSR ---
APPROVED REPORT EXAM: Two-dimensional and M-mode echocardiogram with Doppler and color Doppler. Blood Pressure: 102/66 mmHg INDICATION elevated troponin, chf RISK FACTORS Obesity: Height: 5'11, Weight: 215 DIMENSIONS LVDd7.1 (3.8-5.7cm)LA (2D)4.2 (1.9-4.0cm)Aortic Root3.8 (2.0-3.7cm) LVDs6.5 (2.5-4.0cm)LA (MM) (1.9-4.0cm)Aortic Cusp Exc1.5 (1.5-2.0cm) EF (%) 13.0 (55-70%)Rt. Atrium4.2 (1.9-4.0cm)Asc. Aorta3.0 cm IVSd0.7 (0.7-1.1cm)RV (D)4.6 (1.8-2.4cm) PWd1.2 (0.7-1.1cm) Mitral Valve MitralMitral Stenosis E wave0.52m/sMV Mean GR.mmHg A wave0.73m/sMV Peak GR.74mmHg E/A ratio0.72D MVAcm2 DECEL [id number] 1/2 [place] Aortic Valve Aortic ValveAortic Stenosis V11.15m/Abram Mean GR.4mmHg V21.21m/Abram Peak GR.6mmHg LVOT Diameter2.0 (1.8-2.4cm)Doppler AVA2.98cm2 Pulmonic Valve V20.90m/s Tricuspid Valve TR Velocity2.52m/s [id number] Other Information Quality : Technically LimitedRhythm : Technically limited study due to patient position. pt talking& moving Conclusion Technically good study. Undetermined rhythm. Biatrial enlargement. Biventricular enlargement. Concentric LVH of mild degree. Dilation of the sinuses of Valsalva. Mild aortic sclerosis. Left ventricular function is markedly diminished. EF is 10-15% at best. RV function is mildly dimin ished. Moderate tricuspid regurgitation. No pericardial effusion masses or vegetations discernible
[2024-10-08] MEDS: ACETAMINOPHEN 325 MG TAB PO PRN (13:16)
[2024-10-08] MEDS ORDERED: EMPA1TAB PO (14:44)
[2024-10-08] MEDS ORDERED: CARV-214 PO (14:44)
[2024-10-08] MEDS ORDERED: ALBU108A5 IN (14:44)
[2024-10-08] MEDS ORDERED: POTA-36 PO (14:44)
[2024-10-08] MEDS ORDERED: FURO40TA4 PO (14:44)
[2024-10-08] MEDS ORDERED: ASPI-543 PO (14:44)
[2024-10-08] MEDS ORDERED: IPRA0.00 IN (14:44)
[2024-10-08] MEDS ORDERED: AMIO200T33 PO (14:44)
--- NOTE | 2024-10-08 14:46 | DVHDS2 ---
Discharge Summary Date of Admission Oct 07, 2024 at 02:26 Date of Discharge: Oct 08, 2024 Labs/Diagnostic Data: Laboratory Results Test 10/08/24 07:04 10/07/24 05:33 10/07/24 02:04 10/07/24 01:33 Sodium Level 140 mmol/L (136-145) Potassium Level 3.9 mmol/L (3.5-5.1) Chloride Level 101 mmol/L (98-107) Carbon Dioxide Level 29 mmol/L (20-31) Anion Gap 10 (5-15) Blood Urea Nitrogen 19 mg/dL (9-23) Creatinine 1.30 mg/dL (0.700-1.30) Glomerular Filtration Rate Calc 57 mL/min (>90) BUN/Creatinine Ratio 14.6 (10.0-20.0) Serum Glucose 112 mg/dL (74-106) Calcium Level 9.4 mg/dL (8.7-10.4) Troponin I High Sensitivity 81 ng/L (</=54) Hemoglobin A1c 5.4 % A1C (<5.7) Triglycerides Level 60 mg/dL (< 150) Cholesterol Level 186 mg/dL (< 200) LDL Cholesterol 126 mg/dL (< 100) HDL Cholesterol 56 mg/dL (40-59) Thyroid Stimulating Hormone (TSH) 1.87 uIU/mL (0.55-4.78) Influenza Type A Antigen Negative (Negative) Influenza Type B Antigen Negative (Negative) SARS-CoV-2 Antigen (Rapid) Negative (NEGATIVE) Urine Color Light-yellow (Yellow) Urine Clarity Clear (Clear) Urine pH 5.5 (5.0-9.0) Urine Specific [place] 1.027 (1.001-1.035) Urine Protein Negative (Negative) Urine Ketones Negative (Negative) Urine Blood Negative /uL (Negative) Urine Nitrite Negative (Negative) Urine Bilirubin Negative (Negative) Urine Urobilinogen Normal mg/dL (Negative) Urine Leukocyte Esterase Negative /uL (Negative) Urine RBC 1 /hpf (0 - 3) Urine Microscopic WBC < 1 /HPF (0-3) Urine Squamous Epithelial Cells None seen /hpf (<5) Urine Bacteria None seen /hpf (None Seen) Urine Mucus Few (None Seen) Urine Glucose Normal mg/dL (Normal) Test 10/06/24 23:15 White Blood Count 9.9 10^3/uL (4.4-10.8) Red Blood Count 4.41 10^6/uL (4.5-5.90) Hemoglobin 13.7 g/dL (13.5-17.5) Hematocrit 40.5 % (41.0-53.0) Mean Corpuscular Volume 91.9 fL (80.0-100.0) Mean Corpuscular Hemoglobin 31.1 pg (28.0-32.0) Mean Corpuscular Hemoglobin Concent 33.9 g/dL (32.0-36.0) Red Cell Distribution Width 14.7 % (11.8-14.3) Platelet Count 203 10^3/uL (140-450) Mean Platelet Volume 9.3 fL (6.9-10.8) Neutrophils (%) (Auto) 76.7 % (37.0-80.0) Lymphocytes (%) (Auto) 15.5 % (10.0-50.0) Monocytes (%) (Auto) 6.1 % (0.0-12.0) Eosinophils (%) (Auto) 1.0 % (0.0-7.0) Basophils (%) (Auto) 0.7 % (0.0-2.0) Neutrophils # (Auto) 7.6 10 ^3/uL (1.6-8.6) Lymphocytes # (Auto) 1.5 10 ^3/uL (0.4-5.4) Monocytes # (Auto) 0.6 10 ^3/uL (0-1.3) Eosinophils # (Auto) 0.1 10 ^3/uL (0-0.8) Basophils # (Auto) 0.1 10 ^3/uL (0-0.2) Nucleated Red Blood Cells 0.1 % D-Dimer, Quantitative 0.59 mg/L FEU (0.0-0.49) Lactic Acid Level 1.3 mmol/L (0.4-2.0) Magnesium Level 1.9 mg/dL (1.6-2.6) Total Bilirubin 1.1 mg/dL (0.2-1.0) Aspartate Amino Transferase (AST) 31 U/L (13-40) Alanine Aminotransferase (ALT) 20 U/L (7-40) Alkaline Phosphatase 79 U/L (46-116) B-Type Natriuretic Peptide 1454.72 pg/mL (0-100) Total Protein 7.1 g/dL (5.7-8.2) Albumin 4.4 g/dL (3.2-4.8) Other Laboratory Tests 10/08/24 07:04 10/06/24 23:15 Brief Hx & Hospital Course: Mr. Todd Hair is a 74 yo male with a known history of prostate CA with prostate removal, hypertension, TIA, anxiety, pacemaker placement, OCD, Anxiety, Dementia. Patient presents with a chief complaint of generalized weakness, shortness of breath. Patient endorses he has been having generalized weakness with shortness of breath and non radiating right sided chest pain. Patient denies any history of CHF. Patient BNP 1,454 Troponin 119, CXR: Cardiomegaly , d dimer 0.59 however CTA chest was negative for evidence of a pulmonary embolism. Patient currently denies headaches, dizziness, palpitations, nausea, vomiting, Patient admitted for further evaluation. He is admitted and evaluated manager laboratory. His cardiac medications have been adjusted. Patient received IV diuretics. Patient counseled regarding his end- stage cardiomyopathy with a very poor ejection fraction and advised to limit his oral fluids 6033-2982 mL per 24 hours. He is advised to continue the diuretics as he is prescribed. Otherwise rest of his workup is normal. Patient is clinically feeling better. Therefore it is felt he could be safely discharged home. Patient verbalized understanding his hospital diagnosis, treatment he received, discharge medications, discharge instructions and agree with follow-up plan of care as mentioned. Consults/Reason for consult Assessment Wide complex tachycardia Acute on chronic decompensated HFrEF, NYHA class IV NSTEMI, likely type 2 secondary to above Presence of biventricular ICD (Medtronic) Hypertension Dyslipidemia HX of TIA Dementia Plan/Recommendation We will continue the following plan/recommendations (Dr. Rocha): * Echocardiogram to evaluate cardiac function * Antiarrhythmic agent, initiate amiodarone drip per protocol * Preload and afterload reduction as tolerated * Strict I&Os. Daily weight. Fluid restrictions * Initiate GDMT for CHF and uptitrate as tolerated * Monitor ECG changes closely and notify * Bi-Ventricular AICD interrogation * DVT/VTE prophylaxis Thank you for allowing us to participate in this patient's care. Please call if you have any questions or concerns. This medical document was created using an electronic medical record system with voice recognition software and computerized dictation system. Although this document has been carefully reviewed, there might still be some phonetic and typographical errors. Occasional wrong-word or ``sound-alike substitutions may have occurred due to the inherent limitations of voice recognition software. These areas are purely typographical due to imperfections of the software programs and do not reflect any compromise in the patient's medical care. Please read the chart carefully and recognize, using context, where these substitutions have occurred. Plan discussed with: Patient, Other NYHA 2 Physical activity limitations: Class4(Severe)discomfort (w any activit,symptoms at rest) Date of Service: Oct 07, 2024 Billing Provider: JORGE LOUIS Cardiology Common Codes: [id number] INP/OBS CARE (High) JORGE LOUIS QUALITY ASSURANCE SUPERVISOR BODY Oct 07, 2024 10:05 Operations or Procedures EXAM: Two-dimensional and M-mode echocardiogram with Doppler and color Doppler. Blood Pressure: 102/66 mmHg INDICATION elevated troponin, chf RISK FACTORS Obesity: Height: 5'11, Weight: 215 DIMENSIONS LVDd 7.1 (3.8-5.7cm) LA (2D) 4.2 (1.9-4.0cm) Aortic Root 3.8 (2.0- 3.7cm) LVDs 6.5 (2.5-4.0cm) LA (MM) (1.9-4.0cm) Aortic Cusp Exc 1.5 (1.5- 2.0cm) EF (%) 13.0 (55-70%) Rt. Atrium 4.2 (1.9-4.0cm) Asc. Aorta 3.0 cm IVSd 0.7 (0.7-1.1cm) RV (D) 4.6 (1.8-2.4cm) PWd 1.2 (0.7-1.1cm) Mitral Valve Mitral Mitral Stenosis E wave 0.52m/s MV Mean GR. mmHg A wave 0.73m/s MV Peak GR. 74mmHg E/A ratio 0.7 2D MVA cm2 DECEL Time 125ms PRESS 1/2 Time ms Aortic Valve Aortic Valve Aortic Stenosis V1 1.15m/s AO Mean GR. 4mmHg V2 1.21m/s AO Peak GR. 6mmHg LVOT Diameter 2.0 (1.8-2.4cm) Doppler CANDICE 2.98cm2 Pulmonic Valve V2 0.90m/s Tricuspid Valve TR Velocity 2.52m/s RVSP 30mmHg Other Information Quality : Technically Limited Rhythm : Technically limited study due to patient position. pt talking& moving Conclusion Technically good study. Undetermined rhythm. Biatrial enlargement. Biventricular enlargement. Concentric LVH of mild degree. Dilation of the sinuses of Valsalva. Mild aortic sclerosis. Left ventricular function is markedly diminished. EF is 10-15% at best. RV function is mildly diminished. Moderate tricuspid regurgitation. No pericardial effusion masses or vegetations discernible SIGNED BY: ELE ROCHA Sr., MD SIGNED DATE/TIME: 10/08/24 1218 Condition at Discharge: Stable Final Diagnosis/Problems List atrial fibrillation, congestive heart failure Discharge Disposition: Home Discharge Instruct/Medications Diet: Consistent carbohydrate, Cardiac 2g Na,low cholest Activity: No Restrictions, As Tolerated Activity comment: To limit your oral fluid intake to 1200 mL per 24 hours Follow Up/Referral: Cemetery Counselor to Dr. Rocha in two weeks for cardiomyopathy and heart failure. Primary care physician next week for heart failure management Medications: As prescribed per discharge med reconciliation list New Medications: Albuterol Sulfate (Albuterol Sulfate Hfa) 108 Mcg/Act Aer 108 MCG IN Q4HP PRN, #1 AER Amiodarone Hcl (Amiodarone Hcl) 200 Mg Tab 200 MG PO BID, #60 TAB Carvedilol (Coreg) 3.125 Mg Tab 3.125 MG PO BID, #90 TAB Furosemide (Furosemide) 40 Mg Tab 1 TAB PO BID, #90 TAB 1 Refill Ipratropium-Albuterol (Ipratropium [place]/Albut) 1 Erasmo Erasmo 1 ERASMO IN BID, #30 ML Potassium Chloride (Potassium Chloride Cr) 10 Meq Tb 1 TAB PO BID, #90 TAB Aspirin (Aspir-Low) 81 Mg Tab 81 MG PO DAILY, #60 TAB Empagliflozin (Jardiance) 10 Mg Tab 10 MG PO DAILY, #60 TAB Discharge Statement: "Patient was advised to return to the ER or call 911 if any headaches, dizziness, shortness of breath, chest pain, abdominal pain, bleeding, fevers, or worsening of medical condition. Patient was counseled about treatment plan, medications, possible side effects, patientverbalized understanding. All questions were answered to the best of my ability. This discharge took greater then 30 minutes in planning, reviewing documentation, counseling the patient, and discussing with other team members." ASSESSMENT ASSESSMENT Assessment Generic atrial fibrillation, congestive heart failure ANASTASIIA YOUSSEF MD Oct 08, 2024 14:46
== END 2024-10-08 18:47 | disposition home health service (06) | DRG 280 ==
LOC: ER 22:38 → TELE 10-07 02:26 → TELE-WESTW 10-07 21:52
PROVIDERS: ADMIT Nurse Practitioner Family; ATTEND Nurse Practitioner Family
DX: I11.0 Hypertensive heart disease with heart failure (principal); I50.23 Acute on chronic systolic (congestive) heart failure; I21.A1 Myocardial infarction type 2; E78.5 Hyperlipidemia, unspecified; I48.91 Unspecified atrial fibrillation; Z20.822 Contact with and (suspected) exposure to COVID-19; F03.90 Unspecified dementia, unspecified severity, without behavioral disturbance, psychotic disturbance, mood disturbance, and anxiety; F41.9 Anxiety disorder, unspecified; Z86.73 Personal history of transient ischemic attack (TIA), and cerebral infarction without residual deficits; Z87.891 Personal history of nicotine dependence; Z85.46 Personal history of malignant neoplasm of prostate; Z82.3 Family history of stroke; Z82.49 Family history of ischemic heart disease and other diseases of the circulatory system; Z95.0 Presence of cardiac pacemaker
CPT/HCPCS: 36415; 71045; 71275; 80048; 80053; 80061; 81001; 83036; 83605; 83735; 83880; 84443; 84484; 85025; 85379; 87426; 87804; 93005; 93306; 94640; 97163; 99291; G0378

== ENCOUNTER 2025-06-15 10:36 | Inpatient (IN) | payer OTHER ==
[~2025-06-15] VITALS: Ht 182.9 cm; Wt 97.4 kg
[~2025-06-15 10:36] MED LIST changes: +ALBU108A5 IN; +AMIO200T33 PO; +ASPI-543 PO; +CARV-214 PO; +EMPA1TAB PO; +FURO40TA4 PO; +IPRA0.00 IN; +POTA-36 PO
--- NOTE | 2025-06-15 11:12 | ECG ---
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
[2025-06-15 11:38] LABS: Hematocrit 39.2 % (41.0-53.0); Hemoglobin 13.1 g/dL (13.5-17.5); Mean Corpuscular Hemoglobin 31.4 pg (28.0-32.0); Mean Corpuscular Volume 94.0 fL (80.0-100.0); Nucleated Red Blood Cells % 0.1 %
[2025-06-15 11:48] LABS: Potassium 4.5 mmol/L (3.5-5.1)
--- NOTE | 2025-06-15 11:48 | ED.PDOC ---
History of Present Illness HPI Comments Todd Leyva is a 75-year-old male, with past medical history of prostate ca, HTN, TIA, pacemaker, OCD, anxiety, depression, CHF, pneumonia, and dementia. The patient came to the ED with his , with a chief complain of 1 week of generalized weakness. The patient is a poor historian, the information has been confirmed with his . His reports he has not been sleeping well for the last week due to increase in anxiety and he is been agitated. The patient takes quetiapine 400mg bid for dementia, his report he has been compliant. The patient and his also report ongoing constipation. Today, the patient was more agitated, for this reason his decided to visit the ED. The patient and his denies fever, chills, diarrhea, nausea, vomit, cough, sob, chest pain, abdominal pain or other symptoms. In the ED, BP: 119/80mmHg, HR: 126bpm. The patient will be further assessed. Chief Complaint: General Weakness Time Seen by MD: 10:46 Reviewed Notes: Nurses Notes, Medications, Allergies Allergies: Coded Allergies: Sulfa Antibiotics (Verified Allergy, Severe, 07/19/19) Home Meds Active Scripts Ipratropium-Albuterol (Ipratropium [place]/Albut) 1 Vannessa Vannessa, 1 VANNESSA IN BID, #30 ML Prov:ANASTASIIA YOUSSEF MD 10/08/24 Albuterol Sulfate (Albuterol Sulfate Hfa) 108 Mcg/Act Aer, 108 MCG IN Q4HP PRN, #1 AER Prov:ANASTASIIA YOUSSEF MD 10/08/24 Potassium Chloride (POTASSIUM CHLORIDE CR) 10 Meq Tb, 1 TAB PO BID, #90 TAB Prov:ANASTASIIA YOUSSEF MD 10/08/24 Furosemide (Furosemide) 40 Mg Tab, 1 TAB PO BID, #90 TAB 1 Refill Prov:ANASTASIIA YOUSSEF MD 10/08/24 Amiodarone Hcl (Amiodarone Hcl) 200 Mg Tab, 200 MG PO BID, #60 TAB Prov:ANASTASIIA YOUSSEF MD 10/08/24 Carvedilol (COREG) 3.125 Mg Tab, 3.125 MG PO BID, #90 TAB Prov:ANASTASIIA YOUSSEF MD 10/08/24 Empagliflozin (Jardiance) 10 Mg Tab, 10 MG PO DAILY, #60 TAB Prov:ANASTASIIA YOUSSEF MD 10/08/24 Aspirin (Aspir-Low) 81 Mg Tab, 81 MG PO DAILY, #60 TAB Prov:ANASTASIIA YOUSSEF MD 10/08/24 Reported Medications Lisinopril (Lisinopril) 2.5 Mg Tab, 1 TAB PO DAILY for 90 Days, #90 10/08/24 Clonazepam (KlonoPIN TABLET) 0.5 Mg Tb, 1 TAB PO BID for 90 Days, #90 10/08/24 Donepezil Hydrochloride (DONEPEZIL HCL) 10 Mg Tab, 1 TAB PO DAILY for 90 Days, #90 10/08/24 Information Source: Patient, Spouse Mode of Arrival: Ambulatory Severity: Mild Timing: Weeks Duration: Since onset Past Medical History PAST MEDICAL HISTORY: Anxiety, Cancer (Prostat ca.), CHF, Dementia, Depression, HTN, TIA Past Medical History (Other): Pneumonia, OCD, Surgical History: Pacemaker (placed in 2012) Family History Family History: Reviewed,noncontributory to illness, Family hx of HTN, Family hx of stroke Social History Smoker: Quit Greater Than 1 Year Alcohol: Occasionally Drugs: Denies Drug Use Lives In: Home Constitutional: reports: weakness (Generalized weekness. ); denies: chills, diaphoresis, fatigue, fever, malaise, sweats, others EENTM: denies: blurred vision, double vision, ear bleeding, ear discharge, ear drainage, ear pain, ear ringing, eye pain, eye redness, hearing loss, mouth pain, mouth swelling, nasal discharge, nose bleeding, nose congestion, nose pain, photophobia, tearing, throat pain, throat swelling, voice changes, others Respiratory: denies: cough, hemoptysis, orthopnea, SOB at rest, shortness of breath, SOB with excertion, stridor, wheezing, others Cardiovascular: denies: chest pain, dizzy spells, diaphoresis, Dyspnea on exertion, edema, irregular heart beat, left arm pain, lightheadedness, p alpitations, PND, syncope, others Gastrointestinal: denies: abdomen distended, abdominal pain, blood streaked bowels, constipated, diarrhea, dysphagia, difficulty swallowing, hematemesis, melena, nausea, poor appetite, poor fluid intake, rectal bleeding, rectal pain, vomiting, others Genitourinary: denies: burning, dysuria, flank pain, frequency, hematuria, incontinence, penile discharge, penile sore, pain, testicle pain, testicle swelling, urgency, others Neurological: reports: others (Lack of sleep); denies: dizziness, fainting, headache, left sided numbness, left sided weakness, numbness, paresthesia, pre- existing deficit, right sided numbness, right sided weakness, seizure, speech problems, tingling, tremors, weakness Musculoskeletal: denies: back pain, gout, joint pain, joint swelling, muscle pain, muscle stiffness, neck pain, others Allergic/Immunocompromised: denies: Difficulty Healing, Frequent Infections, Hives, Itching, others Hematologic/Lymphatic: denies: anemia, blood clots, easy bleeding, easy bruising, swollen glands, others Endocrine: denies: excessive hunger, excessive sweating, excessive thirst, excessive urination, flushing, intolerance to cold, intolerance to heat, unexplained weight gain, unexplained weight loss, others Psychiatric: denies: anxiety, bipolar disorder, depression, hopeless, panic di sorder, schizophrenia, sleepless, suicidal, others Physical Exam Exam Comments Alert, oriented in person and placed, not in time. General Appearance: No Apparent Distress HEENT: Normal ENT Inspection, Pharynx Normal, TMs Normal Neck: Full Range of Motion, Non-Tender, Normal, Normal Inspection Respiratory: Chest Non-Tender, Lungs Clear, No Accessory Muscle Use, No Respiratory Distress, Normal Breath Sounds Cardiovascular: No Edema, No JVD, No Murmur, No Gallop, Normal Peripheral Pulses, Regular Rate/Rhythm Breast Exam: Deferred Gastrointestinal: No Organomegaly, Non Tender, No Pulsatile Mass, Normal Bowel Sounds, Soft Genitalia: Deferred Pelvic: Deferred Rectal: Deferred Extremities: No calf tenderness, Normal capillary refill, Normal inspection, Normal range of motion, Non-tender, No pedal edema Musculoskeletal : Apperance: Normal Neurologic: Abnormal Gait, Alert (Wide base gait), 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 Was a procedure done?: No Differential Dx Considerations may include: #R/O UTI #Generalized weakness. X-Ray, Labs, Meds, VS Vital Signs Date Time Temp Pulse Resp B/P (MAP) Pulse Ox O2 Delivery O2 Flow Rate FiO2 06/15/25 12:57 98.4 122 16 112/76 (88) 97 98.4 06/15/25 10:49 121 06/15/25 10:38 97.5 126 18 119/80 98 97.5 Lab Test 06/15/25 11:30 06/15/25 11:24 Range/Units White Blood Count 5.2 4.4-10.8 10^3/uL Red Blood Count 4.17 L 4.5-5.90 10^6/uL Hemoglobin 13.1 L 13.5-17.5 g/dL Hematocrit 39.2 L 41.0-53.0 % Mean Corpuscular Volume 94.0 80.0-100.0 fL Mean Corpuscular Hemoglobin 31.4 28.0-32.0 pg Mean Corpuscular Hemoglobin Concent 33.4 32.0-36.0 g/dL Red Cell Distribution Width 15.6 H 11.8-14.3 % Platelet Count 131 L 140-450 10^3/uL Mean Platelet Volume 9.1 6.9-10.8 fL Neutrophils (%) (Auto) 66.9 37.0-80.0 % Lymphocytes (%) (Auto) 20.9 10.0-50.0 % Monocytes (%) (Auto) 8.5 0.0-12.0 % Eosinophils (%) (Auto) 3.1 0.0-7.0 % Basophils (%) (Auto) 0.6 0.0-2.0 % Neutrophils # (Auto) 3.5 1.6-8.6 10 ^3/uL Lymphocytes # (Auto) 1.1 0.4-5.4 10 ^3/uL Monocytes # (Auto) 0.4 0-1.3 10 ^3/uL Eosinophils # (Auto) 0.2 0-0.8 10 ^3/uL Basophils # (Auto) 0 0-0.2 10 ^3/uL Nucleated Red Blood Cells 0.1 % Sodium Level 146 H 136-145 mmol/L Potassium Level 4.5 3.5-5.1 mmol/L Chloride Level 107 98-107 mmol/L Carbon Dioxide Level 31 20-31 mmol/L Anion Gap 8 5-15 Blood Urea Nitrogen 17 9-23 mg/dL Creatinine 1.12 0.700-1.30 mg/dL Glomerular Filtration Rate Calc 68 >90 mL/min BUN/Creatinine Ratio 15.2 10.0-20.0 Serum Glucose 94 74-106 mg/dL Calcium Level 9.3 8.7-10.4 mg/dL Urine Color Yellow Yellow Urine Clarity Clear Clear Urine pH 5.5 5.0-9.0 Urine Specific [place] 1.027 1.001-1.035 Urine Protein Trace H Negative Urine Ketones Negative Negative Urine Blood Negative Negative /uL Urine Nitrite 2+ H Negative Urine Bilirubin Negative Negative Urine Urobilinogen Normal Negative mg/dL Urine Leukocyte Esterase 1+ Negative /uL Urine RBC 1 0 - 3 /hpf Urine Microscopic WBC 20 H 0-3 /HPF Urine Squamous Epithelial Cells Few <5 /hpf Urine Bacteria Few H None Seen /hpf Urine Mucus Few None Seen Urine Glucose Normal Normal mg/dL X-Ray, Labs, Meds, VS Comment The patient was reassessed. CBC WBC: 5.1x10e3/uL Hb: 13.1 BMP: Unremarkable UA: positive for UTI The patient will be admitted for further assessment and management. Time of 1ST Reevaluation: 13:30 Reevaluation 1ST: Unchanged Patient Education/Counseling: Diagnosis, Treatment, Prognosis, Need For Follow Up Family Education/Counseling: Diagnosis, Treatment, Prognosis, Need For Follow Up SEPSIS Sepsis Screen Date sepsis recognized/suspect: Jun 15, 2025 Time Sepsis recognized/suspect: 1041 Recent Procedure: No On Antibiotic Therapy: No Respiratory Rate >20: No Heart Rate >90: Yes Temp<36 C (96.8 F) or >38.3 C: No SBP <90 or MAP <65 mmHG: No New Acute Mental Status Change: No Is the patient on CPAP, BIPAP,: No Vital Signs Date Time Temp Pulse Resp B/P (MAP) Pulse Ox O2 Delivery O2 Flow Rate FiO2 06/15/25 12:57 98.4 122 16 112/76 (88) 97 98.4 06/15/25 10:49 121 06/15/25 10:38 97.5 126 18 119/80 98 97.5 Laboratory Tests Test 06/15/25 11:30 White Blood Count 5.2 10^3/uL (4.4-10.8) Departure 1 Departure Time of Disposition: 14:24 Impression: Primary Impression: UTI (urinary tract infection) Additional Impression: Dementia Disposition: 09 ADMITTED INPATIENT Condition: Good Comments Goals of care discussed with the patient >35 min Case and plan of care discussed with Dr. Tran. Code status: Full code PCP: Reyna Zamora Plan discussed with the patient, the patient agrees with the admission plan. Critical Care Note Critical Care Time?: No Stability Stability form required: No Heart Score Heart Score: Heart Score Response (Comments) Value History N/A 0 EKG N/A 0 Age N/A 0 Risk Factors N/A 0 Troponin N/A 0 Total 0 TORRI SAMPSON RESIDENT Jun 15, 2025 11:48
[2025-06-15 11:49] LABS: Anion Gap 8 (5-15); Carbon Dioxide 31 mmol/L (20-31)
[2025-06-15 11:50] LABS: Calcium 9.3 mg/dL (8.7-10.4)
[2025-06-15 11:55] LABS: BUN/Creatinine Ratio 15.2 (10.0-20.0); Blood Urea Nitrogen 17 mg/dL (9-23); Chloride 107 mmol/L (98-107); Glucose 94 mg/dL (74-106); Sodium 146 mmol/L (136-145)
[2025-06-15 13:11] LABS: Urine Protein, UAD TRACE (Negative)
[2025-06-15] MEDS ORDERED: ONDANSETRON HCL 4 MG/2 ML VIAL IV PRN (16:45)
[2025-06-15] MEDS ORDERED: HYDROcodone-ACET 5/325MG TAB PO PRN (16:45)
[2025-06-15] MEDS ORDERED: NITROGLYCERIN 0.4 MG SL TAB SL PRN (16:45)
[2025-06-15] MEDS: SODIUM CHLORIDE 0.9% 1,000 ML IV SCH (16:45)
[2025-06-15] MEDS ORDERED: DOCUSATE SOD 100 MG CAP PO PRN (16:45)
[2025-06-15] MEDS ORDERED: ACETAMINOPHEN 325 MG TAB PO PRN (16:45)
[2025-06-15] MEDS ORDERED: MORPHINE SULFATE 4 MG/ML SYR/VIAL IV PRN ×2 (17:15→17:30)
[2025-06-15 22:38] VITALS: BP 108/79; PULSE 116; RESP 19; TEMP 98.2; O2SAT 97
[2025-06-15 22:44] VITALS: BP 108/79; PULSE 116; RESP 16; RESP 20; TEMP 98.2; O2SAT 97
[2025-06-16] VITALS (8 sets, daily range): BP systolic 108–125; BP diastolic 70–94; PULSE 89–129; RESP 16–22; TEMP 97.5–98.6; O2SAT 93–97
--- NOTE | 2025-06-16 02:53 | DVHHP2 ---
Admitting Diagnosis: Symptomatic UTI, Acute metabolic encephalopathy History of Present Illness History Source: Patient Exam Limitations: No limitations HPI Todd Leyva is a 75-year-old male, with past medical history of prostate ca, HTN, TIA, pacemaker, OCD, anxiety, depression, CHF, pneumonia, and dementia. Patient presents with a chief complain of x1 week of generalized weakness. The patient is a poor historian, the information obtained by ED HPI states "His reports he has not been sleeping well for the last week due to increase in anxiety and he is been agitated. The patient takes quetiapine 400mg bid for dementia, his report he has been compliant. The patient and his also report ongoing constipation. Today, the patient was more agitated, for this reason his decided to visit the ED. The patient and his denies fever, chills, diarrhea, nausea, vomit, cough, sob, chest pain, abdominal pain or other symptoms." Patient admitted for further evaluation and treatment. Home Meds Active Scripts Ipratropium-Albuterol (Ipratropium [place]/Albut) 1 Vannessa Vannessa, 1 VANNESSA IN BID, #30 ML Prov:ANASTASIIA YOUSSEF MD 10/08/24 Albuterol Sulfate (Albuterol Sulfate Hfa) 108 Mcg/Act Aer, 108 MCG IN Q4HP PRN, #1 AER Prov:ANASTASIIA YOUSSEF MD 10/08/24 Potassium Chloride (POTASSIUM CHLORIDE CR) 10 Meq Tb, 1 TAB PO BID, #90 TAB Prov:ANASTASIIA YOUSSEF MD 10/08/24 Furosemide (Furosemide) 40 Mg Tab, 1 TAB PO BID, #90 TAB 1 Refill Prov:ANASTASIIA YOUSSEF MD 10/08/24 Amiodarone Hcl (Amiodarone Hcl) 200 Mg Tab, 200 MG PO BID, #60 TAB Prov:ANASTASIIA YOUSSEF MD 10/08/24 Carvedilol (COREG) 3.125 Mg Tab, 3.125 MG PO BID, #90 TAB Prov:ANASTASIIA YOUSSEF MD 10/08/24 Empagliflozin (Jardiance) 10 Mg Tab, 10 MG PO DAILY, #60 TAB Prov:ANASTASIIA YOUSSEF MD 10/08/24 Aspirin (Aspir-Low) 81 Mg Tab, 81 MG PO DAILY, #60 TAB Prov:ANASTASIIA YOUSSEF MD 10/08/24 Reported Medications Lisinopril (Lisinopril) 2.5 Mg Tab, 1 TAB PO DAILY for 90 Days, #90 10/08/24 Clonazepam (KlonoPIN TABLET) 0.5 Mg Tb, 1 TAB PO BID for 90 Days, #90 10/08/24 Donepezil Hydrochloride (DONEPEZIL HCL) 10 Mg Tab, 1 TAB PO DAILY for 90 Days, #90 10/08/24 Past Medical History Cardiac: HTN Pulmonary: No pertinent Hx Central Nervous System: Dementia, TIA GI: No pertinent Hx Hemotology/Oncology: No pertinent Hx Hepatobiliary: No pertinent Hx Psychiatric: Anxiety, Depression, Other (OCD) Musculoskeletal: No pertinent Hx Rheumotologic: No pertinent Hx Infectious Disease: No peritnent Hx ENT: No pertinent Hx Renal/: No pertinent Hx Endocrine: No pertinent Hx Dermatology: No pertinent Hx Past Surgical History: Pacemaker Patient Family History: Patient reports no known family medical history. Smoker: No Hx (Negative) Alocohol: None Drugs: None Lives with: With family Domestic Violence: Neg Review of Systems Constitutional: Weakness (generalized weakness, agitation) Ears, Nose, & Throat: No symptom reported Eyes: No symptom reported Pulmonary/Respiratory: No symptom reported Cardiovascular: No symptom reported Gastrointestinal: No symptom reported Genitourinary: No symptom reported Musculoskeletal: No symptom reported Skin: No symptom reported Psychiatric: No symptom reported Endocrine: No symptom reported Hemotologic/Lymphatic: No symptom reported H&P Exam Vital Signs Vital Signs Date Time Temp Pulse Resp B/P (MAP) Pulse Ox O2 Delivery O2 Flow Rate FiO2 06/16/25 01:00 98.0 119 19 116/89 (98) 95 98.0 06/15/25 22:44 Room Air* 0 21 General Appeara: Well developed, Well nourished, Normal Appearance Head Exam: Normal inspection Neck Exam: Normal inspection, Non-tender, Normal alignment Eye Exam: bilateral eye Normal inspection, bilateral eye PERRL, bilateral eye EOMI Ear Exam: bilateral ear Auricle normal Nasal Exam: Normal inspection Mouth: Normal Inspection Pulmonary/Respiratory: Normal inspection, Normal breath sounds, Chest non- tender, Lungs clear Cardiovascular/Chest: Normal inspection, Normal Rhythm, Tachycardia Peripheral Pulses: 2+ dorsalis pedis (R), 2+ dorsalis pedis (L), 2+ Radial (R), 2+ Radial (L) Abdominal Exam: Normal bowel sounds, Soft Tendon/ Neuro: Normal sensation, 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, Normal speech, PERRL Neuro/Mental St: Alert, Oriented Appearance: Appropriate appearance, Appropriate insight Eye contact/ Speech: Cooperative, Good eye contact, Normal speech Thoughts/Psych: Normal thought pattern Skin Exam: Normal inspection, Normal color, Warm/dry SEPSIS Sepsis Screen Date sepsis recognized/suspect: Jun 15, 2025 Time Sepsis recognized/suspect: 1041 Recent Procedure: No On Antibiotic Therapy: No Respiratory Rate >20: No Heart Rate >90: Yes Temp<36 C (96.8 F) or >38.3 C: No SBP <90 or MAP <65 mmHG: No New Acute Mental Status Change: No Is the patient on CPAP, BIPAP,: No Physician Orders Hepatitis B Surface Antigen (06/16/25 00:23) Hepatitis C Antibody (06/16/25 00:23) Magnesium (06/16/25 04:00) Vital Signs Date Time Temp Pulse Resp B/P (MAP) Pulse Ox O2 Delivery O2 Flow Rate FiO2 06/16/25 01:00 98.0 119 19 116/89 (98) 95 98.0 06/15/25 22:44 98.2 116 16 108/79 (89) 97 98.2 06/15/25 22:44 20 97 Room Air* 0 21 06/15/25 22:38 98.2 116 19 108/79 (89) 97 98.2 06/15/25 19:29 98.3 122 12 113/84 (94) 95 98.3 Labs/Xrays Labs Test 06/15/25 11:30 06/15/25 11:24 Range/Units White Blood Count 5.2 4.4-10.8 10^3/uL Red Blood Count 4.17 L 4.5-5.90 10^6/uL Hemoglobin 13.1 L 13.5-17.5 g/dL Hematocrit 39.2 L 41.0-53.0 % Mean Corpuscular Volume 94.0 80.0-100.0 fL Mean Corpuscular Hemoglobin 31.4 28.0-32.0 pg Mean Corpuscular Hemoglobin Concent 33.4 32.0-36.0 g/dL Red Cell Distribution Width 15.6 H 11.8-14.3 % Platelet Count 131 L 140-450 10^3/uL Mean Platelet Volume 9.1 6.9-10.8 fL Neutrophils (%) (Auto) 66.9 37.0-80.0 % Lymphocytes (%) (Auto) 20.9 10.0-50.0 % Monocytes (%) (Auto) 8.5 0.0-12.0 % Eosinophils (%) (Auto) 3.1 0.0-7.0 % Basophils (%) (Auto) 0.6 0.0-2.0 % Neutrophils # (Auto) 3.5 1.6-8.6 10 ^3/uL Lymphocytes # (Auto) 1.1 0.4-5.4 10 ^3/uL Monocytes # (Auto) 0.4 0-1.3 10 ^3/uL Eosinophils # (Auto) 0.2 0-0.8 10 ^3/uL Basophils # (Auto) 0 0-0.2 10 ^3/uL Nucleated Red Blood Cells 0.1 % Sodium Level 146 H 136-145 mmol/L Potassium Level 4.5 3.5-5.1 mmol/L Chloride Level 107 98-107 mmol/L Carbon Dioxide Level 31 20-31 mmol/L Anion Gap 8 5-15 Blood Urea Nitrogen 17 9-23 mg/dL Creatinine 1.12 0.700-1.30 mg/dL Glomerular Filtration Rate Calc 68 >90 mL/min BUN/Creatinine Ratio 15.2 10.0-20.0 Serum Glucose 94 74-106 mg/dL Calcium Level 9.3 8.7-10.4 mg/dL Urine Color Yellow Yellow Urine Clarity Clear Clear Urine pH 5.5 5.0-9.0 Urine Specific [place] 1.027 1.001-1.035 Urine Protein Trace H Negative Urine Ketones Negative Negative Urine Blood Negative Negative /uL Urine Nitrite 2+ H Negative Urine Bilirubin Negative Negative Urine Urobilinogen Normal Negative mg/dL Urine Leukocyte Esterase 1+ Negative /uL Urine RBC 1 0 - 3 /hpf Urine Microscopic WBC 20 H 0-3 /HPF Urine Squamous Epithelial Cells Few <5 /hpf Urine Bacteria Few H None Seen /hpf Urine Mucus Few None Seen Urine Glucose Normal Normal mg/dL Assessment/Plan Problem List: (1) UTI (urinary tract infection) (2) Metabolic encephalopathy (3) Dementia Plan This is a 75-year-old male, with past medical history of prostate ca, HTN, TIA, pacemaker, OCD, anxiety, depression, CHF, pneumonia, and dementia. Patient presents with a chief complain of x1 week of generalized weakness. Patient found to have 1. Acute symptomatic urinary tract infection 2. Acute metabolic encephalopathy 3. Hypertension 4. Pacemaker placement 5. Chronic CHF 6. Anxiety 7. Depression 8. Dementia Plan Admit Telemetry unit IV antibiotic Ceftriaxone IV fluids PT evaluation Continue home medications when reconciled Discussed all above with patient who verbalizes agreement and understanding of care plan. All questions were answered. Discussed with supervising/admitting MD. Plan discussed with: Patient, Other Code Visit Code Visit Total Time (mins): 45 ED BOOTH Jun 16, 2025 02:53 MIGUEL HOWARD MD Jun 16, 2025 17:05
[2025-06-16 10:09] LABS: Hepatitis B Surface Antigen Negative (Negative)
[2025-06-16 10:23] LABS: Hepatitis C Antibody Negative (Negative)
[2025-06-16] MEDS: AMIODARONE HCL 200 MG TAB PO SCH (11:26)
[2025-06-16] MEDS: CARVEDILOL 3.125 MG TAB PO SCH (11:26)
[2025-06-16] MEDS: CARVEDILOL 3.125 MG TAB PO ONE (13:02)
--- NOTE | 2025-06-16 13:43 | DVHINCON2 ---
Date of service: Jun 16, [address] Coates Reason for Consultation UTI History of Present Illness Todd Leyva is a 75-year-old male, with past medical history of prostate ca, HTN, TIA, pacemaker, OCD, anxiety, depression, CHF, pneumonia, and dementia. Patient presents with a chief complain of x1 week of generalized weakness. The patient is a poor historian, the information obtained by ED HPI states "His reports he has not been sleeping well for the last week due to increase in anxiety and he is been agitated. The patient takes quetiapine 400mg bid for dementia, his report he has been compliant. He has constipation. no fever or chills ID is consulted for UTI Past Medical History DEmentia rest as noted in HPI Family History: Patient reports no known family medical history. Allergies: Coded Allergies: Sulfa Antibiotics (Verified Allergy, Severe, 07/19/19) Home Meds Active Scripts Ipratropium-Albuterol (Ipratropium [place]/Albut) 1 Vannessa Vannessa, 1 VANNESSA IN BID, #30 ML Prov:ANASTASIIA YOUSSEF MD 10/08/24 Albuterol Sulfate (Albuterol Sulfate Hfa) 108 Mcg/Act Aer, 108 MCG IN Q4HP PRN, #1 AER Prov:ANASTASIIA YOUSSEF MD 10/08/24 Potassium Chloride (POTASSIUM CHLORIDE CR) 10 Meq Tb, 1 TAB PO BID, #90 TAB Prov:ANASTASIIA YOUSSEF MD 10/08/24 Furosemide (Furosemide) 40 Mg Tab, 1 TAB PO BID, #90 TAB 1 Refill Prov:ANASTASIIA YOUSSEF MD 10/08/24 Amiodarone Hcl (Amiodarone Hcl) 200 Mg Tab, 200 MG PO BID, #60 TAB Prov:ANASTASIIA YOUSSEF MD 10/08/24 Carvedilol (COREG) 3.125 Mg Tab, 3.125 MG PO BID, #90 TAB Prov:ANASTASIIA YOUSSEF MD 10/08/24 Empagliflozin (Jardiance) 10 Mg Tab, 10 MG PO DAILY, #60 TAB Prov:ANASTASIIA YOUSSEF MD 10/08/24 Aspirin (Aspir-Low) 81 Mg Tab, 81 MG PO DAILY, #60 TAB Prov:ANASTASIIA YOUSSEF MD 10/08/24 Reported Medications Lisinopril (Lisinopril) 2.5 Mg Tab, 1 TAB PO DAILY for 90 Days, #90 10/08/24 Clonazepam (KlonoPIN TABLET) 0.5 Mg Tb, 1 TAB PO BID for 90 Days, #90 10/08/24 Donepezil Hydrochloride (DONEPEZIL HCL) 10 Mg Tab, 1 TAB PO DAILY for 90 Days, #90 10/08/24 Current Medications Current Medications Medications (Trade) Dose Ordered Sig/Estefania Route PRN Reason Start Time Stop Time Status Last Admin Sodium Chloride 1,000 ml @ 60 mls/hr [id number] IV 06/15/25 16:45 06/16/25 04:19 Acetaminophen/ Hydrocodone Bitart ([place] 5/325MG Tab) 1 tab Q4HP PRN PO MODERATE PAIN (4-6 PAIN SCALE) 06/15/25 16:45 Ondansetron HCl (Zofran) 4 mg Q4HP PRN IV NAUSEA / VOMITING 06/15/25 16:45 Hold Docusate Sodium (Colace Capsule) 100 mg BIDPRN PRN PO FOR CONSTIPATION 06/15/25 16:45 Acetaminophen (Tylenol Tablet) 650 mg Q6HP PRN PO PAIN SCALE 1-3 OR TEMP>100.4 06/15/25 16:45 Morphine Sulfate 2 mg Q4HPRN PRN IV SEVERE PAIN (7-10 PAIN SCALE) 06/15/25 17:15 Nitroglycerin (Ntrostat Sublingual) 0.4 mg Q5MINP PRN SL FOR CHEST PAIN 06/15/25 16:45 Morphine Sulfate 2 mg Q30M PRN IV FOR CHEST PAIN 06/15/25 17:30 Ceftriaxone Sodium 50 ml @ 100 mls/hr DAILY@09 IV 06/15/25 17:30 06/16/25 11:33 Amiodarone HCl (Cordarone Tablet) 200 mg Q12HR PO 06/16/25 10:00 06/16/25 11:26 Carvedilol (Coreg Tablet) 3.125 mg Q12HR PO 06/16/25 10:00 06/16/25 11:26 Review of Systems unable to obtain Vital Signs Vital Signs Date Time Temp Pulse Resp B/P (MAP) Pulse Ox O2 Delivery O2 Flow Rate FiO2 06/16/25 13:02 122 121/91 06/16/25 09:00 98.2 18 93 98.2 06/15/25 22:44 Room Air* 0 21 Physical Exam General confiused HEENT: Atraumatic Neck: No swelling Lungs: Equal air entry and clear to auscultation Cardiovascular: S2 heard no murmur Abdomen: Soft nontender, no organomegaly, nondistended Neuro dementia Labs/Diagnostic Data Labs Test 06/16/25 05:57 06/15/25 11:30 06/15/25 11:24 Range/Units Magnesium Level 1.9 1.6-2.6 mg/dL Hepatitis B Surface Antigen Negative Negative Hepatitis C Antibody Negative Negative White Blood Count 5.2 4.4-10.8 10^3/uL Red Blood Count 4.17 L 4.5-5.90 10^6/uL Hemoglobin 13.1 L 13.5-17.5 g/dL Hematocrit 39.2 L 41.0-53.0 % Mean Corpuscular Volume 94.0 80.0-100.0 fL Mean Corpuscular Hemoglobin 31.4 28.0-32.0 pg Mean Corpuscular Hemoglobin Concent 33.4 32.0-36.0 g/dL Red Cell Distribution Width 15.6 H 11.8-14.3 % Platelet Count 131 L 140-450 10^3/uL Mean Platelet Volume 9.1 6.9-10.8 fL Neutrophils (%) (Auto) 66.9 37.0-80.0 % Lymphocytes (%) (Auto) 20.9 10.0-50.0 % Monocytes (%) (Auto) 8.5 0.0-12.0 % Eosinophils (%) (Auto) 3.1 0.0-7.0 % Basophils (%) (Auto) 0.6 0.0-2.0 % Neutrophils # (Auto) 3.5 1.6-8.6 10 ^3/uL Lymphocytes # (Auto) 1.1 0.4-5.4 10 ^3/uL Monocytes # (Auto) 0.4 0-1.3 10 ^3/uL Eosinophils # (Auto) 0.2 0-0.8 10 ^3/uL Basophils # (Auto) 0 0-0.2 10 ^3/uL Nucleated Red Blood Cells 0.1 % Sodium Level 146 H 136-145 mmol/L Potassium Level 4.5 3.5-5.1 mmol/L Chloride Level 107 98-107 mmol/L Carbon Dioxide Level 31 20-31 mmol/L Anion Gap 8 5-15 Blood Urea Nitrogen 17 9-23 mg/dL Creatinine 1.12 0.700-1.30 mg/dL Glomerular Filtration Rate Calc 68 >90 mL/min BUN/Creatinine Ratio 15.2 10.0-20.0 Serum Glucose 94 74-106 mg/dL Calcium Level 9.3 8.7-10.4 mg/dL Urine Color Yellow Yellow Urine Clarity Clear Clear Urine pH 5.5 5.0-9.0 Urine Specific [place] 1.027 1.001-1.035 Urine Protein Trace H Negative Urine Ketones Negative Negative Urine Blood Negative Negative /uL Urine Nitrite 2+ H Negative Urine Bilirubin Negative Negative Urine Urobilinogen Normal Negative mg/dL Urine Leukocyte Esterase 1+ Negative /uL Urine RBC 1 0 - 3 /hpf Urine Microscopic WBC 20 H 0-3 /HPF Urine Squamous Epithelial Cells Few <5 /hpf Urine Bacteria Few H None Seen /hpf Urine Mucus Few None Seen Urine Glucose Normal Normal mg/dL Microbiology Date/Time Source Procedure Growth Status 06/15/25 11:24 Urine - Midstream Clean Catch Urine Culture - Preliminary Resulted Assessment A 75-year-old male Acute on chronic worsening of mental status Acute metabolic encephalopathy UTI due to Gram-negative rods Tachycardia Dementia Recommendations Follow urine culture, Continue IV ceftriaxone daily IV fluids Tachycardia management deferred to primary Prognosis guarded Total time 80 minute spent in encounter Plan discussed with: Other FLOYD WALL MD Jun 16, 2025 13:43
--- NOTE | 2025-06-16 15:56 | DVHINCON2 ---
Date Seen: Jun 16, 2025 Referring Physician MD Aminata Reason for Consultation Elevated heart rate History of Present Illness This is a 75-year-old male patient who presents to emergency room with chief complaint of generalized weakness. At the time of assessment the patient is confused. History obtained from bedside RN and medical records. Cardiology has been consulted at this time for tachycardia. Initial twelve electrocardiogram reveals V paced rhythm. At the time of assessment, the patient is in V paced rhythm with heart rate in the 80s. The patient denies any cardiac symptoms such as chest pain, palpitations, shortness of breath, or dizziness at time of as sessment. No troponin levels have been drawn during this admission. Significant past medical history includes congestive heart failure, status post Bi-ventricular ICD (Medtronic), hypertension, dyslipidemia, TIA, dementia, and anxiety. Of note, the patient was seen at this facility on 10/07/2024 and was diagnosed with a wide complex tachycardia and started on amiodarone therapy. The patient is not able to answer if he follows up with a home visitor in the outpatient setting. He is a poor historian. Past Medical History Past medical history reviewed. No other significant than mentioned above. Past Surgical History Biventricular ICD (Medtronic) Family History: Patient reports no known family medical history. Family History Family history reviewed. Social History Denies the use of tobacco, alcohol or illicit drugs. Allergies: Coded Allergies: Sulfa Antibiotics (Verified Allergy, Severe, 07/19/19) Home Meds Active Scripts Ipratropium-Albuterol (Ipratropium [place]/Albut) 1 Vannessa Vannessa, 1 VANNESSA IN BID, #30 ML Prov:ANASTASIIA YOUSSEF MD 10/08/24 Albuterol Sulfate (Albuterol Sulfate Hfa) 108 Mcg/Act Aer, 108 MCG IN Q4HP PRN, #1 AER Prov:ANASTASIIA YOUSSEF MD 10/08/24 Potassium Chloride (POTASSIUM CHLORIDE CR) 10 Meq Tb, 1 TAB PO BID, #90 TAB Prov:ANASTASIIA YOUSSEF MD 10/08/24 Furosemide (Furosemide) 40 Mg Tab, 1 TAB PO BID, #90 TAB 1 Refill Prov:ANASTASIIA YOUSSEF MD 10/08/24 Amiodarone Hcl (Amiodarone Hcl) 200 Mg Tab, 200 MG PO BID, #60 TAB Prov:ANASTASIIA YOUSSEF MD 10/08/24 Carvedilol (COREG) 3.125 Mg Tab, 3.125 MG PO BID, #90 TAB Prov:ANASTASIIA YOUSSEF MD 10/08/24 Empagliflozin (Jardiance) 10 Mg Tab, 10 MG PO DAILY, #60 TAB Prov:ANASTASIIA YOUSSEF MD 10/08/24 Aspirin (Aspir-Low) 81 Mg Tab, 81 MG PO DAILY, #60 TAB Prov:ANASTASIIA YOUSSEF MD 10/08/24 Reported Medications Lisinopril (Lisinopril) 2.5 Mg Tab, 1 TAB PO DAILY for 90 Days, #90 10/08/24 Clonazepam (KlonoPIN TABLET) 0.5 Mg Tb, 1 TAB PO BID for 90 Days, #90 10/08/24 Donepezil Hydrochloride (DONEPEZIL HCL) 10 Mg Tab, 1 TAB PO DAILY for 90 Days, #90 10/08/24 Home Meds Home medications reviewed. Current Medications Current Medications Medications (Trade) Dose Ordered Sig/Estefania Route PRN Reason Start Time Stop Time Status Last Admin Sodium Chloride 1,000 ml @ 60 mls/hr [id number] IV 06/15/25 16:45 06/16/25 04:19 Acetaminophen/ Hydrocodone Bitart ([place] 5/325MG Tab) 1 tab Q4HP PRN PO MODERATE PAIN (4-6 PAIN SCALE) 06/15/25 16:45 Ondansetron HCl (Zofran) 4 mg Q4HP PRN IV NAUSEA / VOMITING 06/15/25 16:45 Hold Docusate Sodium (Colace Capsule) 100 mg BIDPRN PRN PO FOR CONSTIPATION 06/15/25 16:45 Acetaminophen (Tylenol Tablet) 650 mg Q6HP PRN PO PAIN SCALE 1-3 OR TEMP>100.4 06/15/25 16:45 Morphine Sulfate 2 mg Q4HPRN PRN IV SEVERE PAIN (7-10 PAIN SCALE) 06/15/25 17:15 Nitroglycerin (Ntrostat Sublingual) 0.4 mg Q5MINP PRN SL FOR CHEST PAIN 06/15/25 16:45 Morphine Sulfate 2 mg Q30M PRN IV FOR CHEST PAIN 06/15/25 17:30 Ceftriaxone Sodium 50 ml @ 100 mls/hr DAILY@09 IV 06/15/25 17:30 06/16/25 11:33 Amiodarone HCl (Cordarone Tablet) 200 mg Q12HR PO 06/16/25 10:00 06/16/25 11:26 Carvedilol (Coreg Tablet) 3.125 mg Q12HR PO 06/16/25 10:00 06/16/25 11:26 Review of Systems Constitutional: Generalized weakness Ears, Nose, & Throat: No symptom reported Eyes: No symptom reported Neurological: No symptoms reported Pulmonary/Respiratory: No symptoms reported Cardiovascular: No symptom reported Gastrointestinal: No symptom reported Genitourinary: No symptom reported Musculoskeletal: No symptom reported Skin: No symptom reported Psychiatric: No symptom reported Endocrine: No symptom reported Hematologic/Lymphatic: No symptom reported Vital Signs Vital Signs Date Time Temp Pulse Resp B/P (MAP) Pulse Ox O2 Delivery O2 Flow Rate FiO2 06/16/25 13:02 122 121/91 06/16/25 13:00 98.6 18 94 98.6 06/15/25 22:44 Room Air* 0 21 Physical Exam General Appearance: Cooperative. Well-developed. Well-nourished. No acute distress. Pulmonary/Respiratory: Clear, bilateral breaths sounds. Cardiovascular/Chest: Regular rate and rhythm. Peripheral Pulses: 2+ Radial (R). 2+ Radial (L). 2+ Pedal (R). 2+ Pedal (L) Abdominal Exam: Normal bowel sounds. Ankle Exam: Negative ankle edema Lower extremities: Negative lower extremity edema Neuro/Mental Status: A/OX2-3, confused Thoughts/Psych: Normal thought pattern. Appropriate mood and affect. Appearance: No acute distress. Skin Exam: Normal inspection. Normal color. Warm and dry. Labs/Diagnostic Data Labs Test 06/16/25 05:57 06/15/25 11:30 06/15/25 11:24 Range/Units Magnesium Level 1.9 1.6-2.6 mg/dL Hepatitis B Surface Antigen Negative Negative Hepatitis C Antibody Negative Negative White Blood Count 5.2 4.4-10.8 10^3/uL Red Blood Count 4.17 L 4.5-5.90 10^6/uL Hemoglobin 13.1 L 13.5-17.5 g/dL Hematocrit 39.2 L 41.0-53.0 % Mean Corpuscular Volume 94.0 80.0-100.0 fL Mean Corpuscular Hemoglobin 31.4 28.0-32.0 pg Mean Corpuscular Hemoglobin Concent 33.4 32.0-36.0 g/dL Red Cell Distribution Width 15.6 H 11.8-14.3 % Platelet Count 131 L 140-450 10^3/uL Mean Platelet Volume 9.1 6.9-10.8 fL Neutrophils (%) (Auto) 66.9 37.0-80.0 % Lymphocytes (%) (Auto) 20.9 10.0-50.0 % Monocytes (%) (Auto) 8.5 0.0-12.0 % Eosinophils (%) (Auto) 3.1 0.0-7.0 % Basophils (%) (Auto) 0.6 0.0-2.0 % Neutrophils # (Auto) 3.5 1.6-8.6 10 ^3/uL Lymphocytes # (Auto) 1.1 0.4-5.4 10 ^3/uL Monocytes # (Auto) 0.4 0-1.3 10 ^3/uL Eosinophils # (Auto) 0.2 0-0.8 10 ^3/uL Basophils # (Auto) 0 0-0.2 10 ^3/uL Nucleated Red Blood Cells 0.1 % Sodium Level 146 H 136-145 mmol/L Potassium Level 4.5 3.5-5.1 mmol/L Chloride Level 107 98-107 mmol/L Carbon Dioxide Level 31 20-31 mmol/L Anion Gap 8 5-15 Blood Urea Nitrogen 17 9-23 mg/dL Creatinine 1.12 0.700-1.30 mg/dL Glomerular Filtration Rate Calc 68 >90 mL/min BUN/Creatinine Ratio 15.2 10.0-20.0 Serum Glucose 94 74-106 mg/dL Calcium Level 9.3 8.7-10.4 mg/dL Urine Color Yellow Yellow Urine Clarity Clear Clear Urine pH 5.5 5.0-9.0 Urine Specific [place] 1.027 1.001-1.035 Urine Protein Trace H Negative Urine Ketones Negative Negative Urine Blood Negative Negative /uL Urine Nitrite 2+ H Negative Urine Bilirubin Negative Negative Urine Urobilinogen Normal Negative mg/dL Urine Leukocyte Esterase 1+ Negative /uL Urine RBC 1 0 - 3 /hpf Urine Microscopic WBC 20 H 0-3 /HPF Urine Squamous Epithelial Cells Few <5 /hpf Urine Bacteria Few H None Seen /hpf Urine Mucus Few None Seen Urine Glucose Normal Normal mg/dL Microbiology Date/Time Source Procedure Growth Status 06/15/25 11:24 Urine - Midstream Clean Catch Urine Culture - Preliminary Resulted Assessment V-paced rhythm Acute on chronic decompensated HFrEF, NYHA class III Presence of biventricular ICD (Medtronic) Hypertension Dyslipidemia Tricuspid valve regurgitation, moderate degree Urinary tract infection HX of TIA Dementia Plan/Recommendation We will continue the following plan/recommendations (Dr. Peguero): * Echocardiogram to evaluate cardiac function * Previous transthoracic echocardiogram from 10/07/2024 reveals an EF of 10- 15% with biatrial and biventricular enlargement * Preload and afterload reduction as tolerated * Strict intake and output, daily weights, maintain fluid restriction * Initiate GDMT for CHF and uptitrate as tolerated * Hold SGLT2i (Jardiance) at this time given UTI * Bi-Ventricular AICD interrogation with Medtronic * Close telemetry monitoring * Antibiotics per primary care team Patient noted to have episodes of tachycardia. At the time of assessment, the patient is in a controlled rate with V paced rhythm. Tachycardia likely in the setting of underlying UTI. Pending urine culture. Patient mentions a runny nose and cough at time of assessment, we will order influenza A/B, and COVID swab. Thank you for allowing us to participate in this patient's care. Please call if you have any questions or concerns. Critical care time spent: 44 minutes This medical document was created using an electronic medical record system with voice recognition software and computerized dictation system. Although this document has been carefully reviewed, there might still be some phonetic and typographical errors. Occasional wrong-word or ``sound-alike substitutions may have occurred due to the inherent limitations of voice recognition software. These areas are purely typographical due to imperfections of the software programs and do not reflect any compromise in the patient's medical care. Please read the chart carefully and recognize, using context, where these substitutions have occurred. Plan discussed with: Patient, Other (Bedside RN) NYHA Physical activity limitations: Class3(Marked) ordinary (activity causes symtoms) Date of Service: Jun 16, 2025 Billing Provider: ARTEM MORALESP Cardiology Common Codes: 25267-FERPHKK INP/OBS CARE (High) Cardiology Consultation Codes: 28626-[id number] CONSULT <45MIN ARTEM MORALES [facility] Jun 16, 2025 15:56
[2025-06-16 16:15] LABS: Hematocrit 39.0 % (41.0-53.0); Hemoglobin 12.9 g/dL (13.5-17.5); Mean Corpuscular Hemoglobin 31.4 pg (28.0-32.0); Mean Corpuscular Volume 95.2 fL (80.0-100.0); Nucleated Red Blood Cells % 0.3 %
[2025-06-16 16:21] LABS: Chloride 107 mmol/L (98-107); Potassium 4.1 mmol/L (3.5-5.1)
[2025-06-16 16:22] LABS: Anion Gap 11 (5-15); Carbon Dioxide 28 mmol/L (20-31); Sodium 146 mmol/L (136-145)
[2025-06-16 16:23] LABS: Calcium 9.0 mg/dL (8.7-10.4)
[2025-06-16 16:27] LABS: BUN/Creatinine Ratio 17.5 (10.0-20.0); Blood Urea Nitrogen 18 mg/dL (9-23); Glucose 93 mg/dL (74-106)
[2025-06-16 16:33] LABS: Triglycerides 70 mg/dL (< 150)
[2025-06-16 16:35] LABS: Cholesterol 123 mg/dL (< 200); HDL Cholesterol 51 mg/dL (40-59)
[2025-06-16] MEDS ORDERED: ALPRAZolam 0.25 MG TAB PO PRN (17:30)
[2025-06-16] MEDS: ALPRAZolam 0.25 MG TAB PO PRN (17:41)
--- NOTE | 2025-06-16 18:21 | DVH ---
CHEST RADIOGRAPH Indication: SOB Technique: Single frontal view of the chest was obtained Comparison: XY CHEST PORTABLE on DOS: 10/06/24, XR CHEST 1 VIEW on DOS: 01/31/23, XR CHEST 1 VIEW on DOS: 05/19/21 FINDINGS: Lines and Tubes: None. Left-sided approach biventricular lead AICD in satisfactory position. Lungs: Diffuse interstitial prominence. Obscuration of the left hemidiaphragm. No pneumothorax. Cardiomediastinal contours: Moderate cardiomegaly with moderate atherosclerotic calcification and unc oiling of the aorta. Bones: No acute osseous abnormality. IMPRESSION: Cardiomegaly with pulmonary vascular congestion. Possible underlying trace left-sided pleural effusi on.
[2025-06-16] MEDS: FUROSEMIDE 20 MG/2 ML VIAL IV SCH (21:02)
[2025-06-16 21:38] LABS: COVID19 ANTIGEN SOFIA FIA NEGATIVE (NEGATIVE)
[2025-06-17] VITALS (7 sets, daily range): BP systolic 111–126; BP diastolic 74–87; PULSE 85–123; RESP 16–20; TEMP 36.7; O2SAT 92–95
[2025-06-17] MEDS: SPIRONOLACTONE 25 MG TAB PO SCH (09:31)
[2025-06-17] MEDS: LISINOPRIL 5 MG TAB PO SCH (09:32)
--- NOTE | 2025-06-17 09:57 | DVHPN2 ---
Progress Note - Dictate Date Seen: Jun 17, 2025 Medical Necessity Reason Pt with a Central, PICC or Fol: No Subjective Patient is a poor historian. He has dementia Patient is on room air. No signs of distress vital signs Vital Sign Date Time Temp Pulse Resp B/P (MAP) Pulse Ox O2 Delivery O2 Flow Rate FiO2 06/17/25 09:32 126/87 06/17/25 09:31 118 06/17/25 08:32 97.7 18 92 97.7 06/16/25 20:00 Room Air* 0 21 Total Intake and Output 06/16/25 06/16/25 06/17/25 15:00 23:00 07:00 Intake Total 50 ml 845 ml 305 ml Output Total 2 ml 1106 ml Balance 50 ml 843 ml -801 ml medications Current Medications Medications Dose Ordered Sig/Estefania Route Start Time Stop Time Status Last Admin Dose Admin Sodium Chloride 1,000 ml @ 60 mls/hr [id number] IV 06/15/25 16:45 06/16/25 04:19 60 MLS/HR Acetaminophen/ Hydrocodone Bitart 1 tab Q4HP PRN PO 06/15/25 16:45 Ondansetron HCl 4 mg Q4HP PRN IV 06/15/25 16:45 Hold Docusate Sodium 100 mg BIDPRN PRN PO 06/15/25 16:45 Acetaminophen 650 mg Q6HP PRN PO 06/15/25 16:45 Morphine Sulfate 2 mg Q4HPRN PRN IV 06/15/25 17:15 Nitroglycerin 0.4 mg Q5MINP PRN SL 06/15/25 16:45 Morphine Sulfate 2 mg Q30M PRN IV 06/15/25 17:30 Ceftriaxone Sodium 50 ml @ 100 mls/hr DAILY@09 IV 06/15/25 17:30 06/17/25 09:31 100 MLS/HR Amiodarone HCl 200 mg Q12HR PO 06/16/25 10:00 06/17/25 09:31 200 MG Carvedilol 3.125 mg Q12HR PO 06/16/25 10:00 06/17/25 09:31 3.125 MG Lisinopril 2.5 mg DAILY PO 06/17/25 10:00 06/17/25 09:32 2.5 MG Spironolactone 25 mg DAILY PO 06/17/25 10:00 06/17/25 09:31 25 MG Furosemide 20 mg BIDD IV 06/16/25 18:00 06/17/25 05:38 20 MG Alprazolam 0.25 mg Q12HP PRN PO 06/16/25 17:30 UNV Alprazolam 0.25 mg Q12HP PRN PO 06/16/25 17:30 06/16/25 17:41 0.25 MG objective General confiused HEENT: Atraumatic Neck: No swelling Lungs: Equal air entry and clear to auscultation Cardiovascular: S2 heard no murmur Abdomen: Soft nontender, no organomegaly, nondistended Neuro dementia laboratory and microbiology Laboratory Tests 06/16/25 05:57 Test 06/16/25 05:57 Range/Units Serum Glucose 93 74-106 mg/dL Assessment/Plan A 75-year-old male Acute on chronic worsening of mental status Acute metabolic encephalopathy UTI due to Gram-negative rods Tachycardia Dementia Recommendations Follow urine culture, Continue IV ceftriaxone daily; plan is to taper to oral at the time of discharge Tachycardia management deferred to primary chest x ray shows cardiomegaly with Pulmonary vascular congestion Prognosis guarded Total time 50 minute spent in encounter Plan discussed with: Other FLOYD WALL MD Jun 17, 2025 09:57
[2025-06-17] MEDS ORDERED: CEFD300C2 PO (13:19)
[2025-06-17] MEDS ORDERED: SPIR25TA PO (13:19)
[2025-06-17] MEDS ORDERED: CARV6.2517 PO (13:19)
--- NOTE | 2025-06-17 13:21 | DVHDS2 ---
Discharge Summary Date of Admission Jun 15, 2025 at 16:34 Date of Discharge: Jun 17, 2025 Labs/Diagnostic Data: Laboratory Results Test 06/16/25 20:40 06/16/25 05:57 06/15/25 11:24 Influenza Type A Antigen Negative (Negative) Influenza Type B Antigen Negative (Negative) SARS-CoV-2 Antigen (Rapid) Negative (NEGATIVE) White Blood Count 5.3 10^3/uL (4.4-10.8) Red Blood Count 4.10 10^6/uL (4.5-5.90) Hemoglobin 12.9 g/dL (13.5-17.5) Hematocrit 39.0 % (41.0-53.0) Mean Corpuscular Volume 95.2 fL (80.0-100.0) Mean Corpuscular Hemoglobin 31.4 pg (28.0-32.0) Mean Corpuscular Hemoglobin Concent 33.0 g/dL (32.0-36.0) Red Cell Distribution Width 15.9 % (11.8-14.3) Platelet Count 138 10^3/uL (140-450) Mean Platelet Volume 10.5 fL (6.9-10.8) Neutrophils (%) (Auto) 63.7 % (37.0-80.0) Lymphocytes (%) (Auto) 24.5 % (10.0-50.0) Monocytes (%) (Auto) 7.6 % (0.0-12.0) Eosinophils (%) (Auto) 3.5 % (0.0-7.0) Basophils (%) (Auto) 0.7 % (0.0-2.0) Neutrophils # (Auto) 3.4 10 ^3/uL (1.6-8.6) Lymphocytes # (Auto) 1.3 10 ^3/uL (0.4-5.4) Monocytes # (Auto) 0.4 10 ^3/uL (0-1.3) Eosinophils # (Auto) 0.2 10 ^3/uL (0-0.8) Basophils # (Auto) 0 10 ^3/uL (0-0.2) Nucleated Red Blood Cells 0.3 % Sodium Level 146 mmol/L (136-145) Potassium Level 4.1 mmol/L (3.5-5.1) Chloride Level 107 mmol/L (98-107) Carbon Dioxide Level 28 mmol/L (20-31) Anion Gap 11 (5-15) Blood Urea Nitrogen 18 mg/dL (9-23) Creatinine 1.03 mg/dL (0.700-1.30) Glomerular Filtration Rate Calc 75 mL/min (>90) BUN/Creatinine Ratio 17.5 (10.0-20.0) Serum Glucose 93 mg/dL (74-106) Hemoglobin A1c 5.5 % A1C (<5.7) Calcium Level 9.0 mg/dL (8.7-10.4) Magnesium Level 1.9 mg/dL (1.6-2.6) B-Type Natriuretic Peptide 1148.40 pg/mL (0-100) Triglycerides Level 70 mg/dL (< 150) Cholesterol Level 123 mg/dL (< 200) LDL Cholesterol 65 mg/dL (< 100) HDL Cholesterol 51 mg/dL (40-59) Thyroid Stimulating Hormone (TSH) 1.82 uIU/mL (0.55-4.78) Hepatitis B Surface Antigen Negative (Negative) Hepatitis C Antibody Negative (Negative) Urine Color Yellow (Yellow) Urine Clarity Clear (Clear) Urine pH 5.5 (5.0-9.0) Urine Specific [place] 1.027 (1.001-1.035) Urine Protein Trace (Negative) Urine Ketones Negative (Negative) Urine Blood Negative /uL (Negative) Urine Nitrite 2+ (Negative) Urine Bilirubin Negative (Negative) Urine Urobilinogen Normal mg/dL (Negative) Urine Leukocyte Esterase 1+ /uL (Negative) Urine RBC 1 /hpf (0 - 3) Urine Microscopic WBC 20 /HPF (0-3) Urine Squamous Epithelial Cells Few /hpf (<5) Urine Bacteria Few /hpf (None Seen) Urine Mucus Few (None Seen) Urine Glucose Normal mg/dL (Normal) Other Laboratory Tests 06/16/25 05:57 Brief Hx & Hospital Course: This is a 75-year-old male, with past medical history of prostate ca, HTN, TIA, pacemaker, OCD, anxiety, depression, CHF, pneumonia, and dementia. Patient presents with a chief complain of x1 week of generalized weakness. Patient found to have acute symptomatic urinary tract infection. Patient has also had initially metabolic encephalopathy which is currently resolved. Patient does have known history of status post AICD his heart rate was going up. Cardiology adjusted the medication also patient was started on Aldactone. Patient's carvedilol was double as his heart rate was more than 120s with systolic blood pressure of 126. Patient will be discharged home on p.o. antibiotics and Aldactone with a close follow up as an outpatient with the PCP cardiology. Patient's AICD will be interrogated before he discharged home. Home health home safety evaluation we will be arranged per choice oil field caser. Condition at Discharge: Stable Final Diagnosis/Problems List This is a 75-year-old male, with past medical history of prostate ca, HTN, TIA, pacemaker, OCD, anxiety, depression, CHF, pneumonia, and dementia. Patient presents with a chief complain of x1 week of generalized weakness. Patient found to have 1. Acute symptomatic urinary tract infection 2. Acute metabolic encephalopathy 3. Hypertension 4. Status post AICD 5. Chronic CHF 6. Anxiety 7. Depression 8. Dementia Discharge Disposition: Home with Health Services SNF Discharge Will this Physician continue t: No Discharge Instruct/Medications Diet: Cardiac 2g Na,low cholest Activity: No Restrictions, As Tolerated Follow Up/Referral: Follow up with the PCP and Cardiology in 1-2 weeks Medications: Resume home medication, new prescription as prescribed New Medications: Carvedilol (Coreg) 6.25 Mg Tab 1 TAB PO BID, #120 TAB 1 Refill Cefdinir (Cefdinir) 300 Mg Cap 1 CAP PO BID PRN for 3 Days, #6 CAP Spironolactone (Aldactone) 25 Mg Tab 25 MG PO DAILY, #60 TAB Continued Medications: Albuterol Sulfate (Albuterol Sulfate Hfa) 108 Mcg/Act Aer 108 MCG IN Q4HP PRN, #1 AER Amiodarone Hcl (Amiodarone Hcl) 200 Mg Tab 200 MG PO BID, #60 TAB Aspirin (Aspir-Low) 81 Mg Tab 81 MG PO DAILY, #60 TAB Clonazepam (KlonoPIN TABLET) 0.5 Mg Tb 1 TAB PO BID for 90 Days, #90 Donepezil Hydrochloride (Donepezil Hcl) 10 Mg Tab 1 TAB PO DAILY for 90 Days, #90 Furosemide (Furosemide) 40 Mg Tab 1 TAB PO BID, #90 TAB 1 Refill Ipratropium-Albuterol (Ipratropium [place]/Albut) 1 Erasmo Erasmo 1 ERASMO IN BID, #30 ML Lisinopril (Lisinopril) 2.5 Mg Tab 1 TAB PO DAILY for 90 Days, #90 Potassium Chloride (Potassium Chloride Cr) 10 Meq Tb 1 TAB PO BID, #90 TAB Discontinued Medications: Carvedilol (Coreg) 3.125 Mg Tab 3.125 MG PO BID, #90 TAB Empagliflozin (Jardiance) 10 Mg Tab 10 MG PO DAILY, #60 TAB Scheduled Amiodarone Hcl (Amiodarone Hcl), 200 MG PO BID Aspirin (Aspir-Low), 81 MG PO DAILY Carvedilol (Coreg), 3.125 MG PO BID Carvedilol (Coreg), 1 TAB PO BID Clonazepam (KlonoPIN TABLET), 1 TAB PO BID, (Reported) Donepezil Hydrochloride (Donepezil Hcl), 1 TAB PO DAILY, (Reported) Empagliflozin (Jardiance), 10 MG PO DAILY Furosemide (Furosemide), 1 TAB PO BID Ipratropium-Albuterol (Ipratropium [place]/Albut), 1 ERASMO IN BID Lisinopril (Lisinopril), 1 TAB PO DAILY, (Reported) Potassium Chloride (Potassium Chloride Cr), 1 TAB PO BID Spironolactone (Aldactone), 25 MG PO DAILY Scheduled PRN Albuterol Sulfate (Albuterol Sulfate Hfa), 108 MCG IN Q4HP PRN Cefdinir (Cefdinir), 1 CAP PO BID PRN Discharge Statement: "Patient was advised to return to the ER or call 911 if any headaches, dizziness, shortness of breath, chest pain, abdominal pain, bleeding, fevers, or worsening of medical condition. Patient was counseled about treatment plan, medications, possible side effects, patientverbalized understanding. All questions were answered to the best of my ability. This discharge took greater then 30 minutes in planning, reviewing documentation, counseling the patient, and discussing with other team members." ASSESSMENT ASSESSMENT Assessment This is a 75-year-old male, with past medical history of prostate ca, HTN, TIA, pacemaker, OCD, anxiety, depression, CHF, pneumonia, and dementia. Patient presents with a chief complain of x1 week of generalized weakness. Patient found to have 1. Acute symptomatic urinary tract infection 2. Acute metabolic encephalopathy 3. Hypertension 4. Status post AICD 5. Chronic CHF 6. Anxiety 7. Depression 8. Dementia Date of Service: Jun 17, 2025 Billing Provider: MIGUEL HOWARD MD Common Visit Codes: NOT BILLABLE MIGUEL HOWARD MD Jun 17, 2025 13:21
[2025-06-17] MEDS: CARVEDILOL 3.125 MG TAB PO ONE ×2 (14:24→15:03)
--- NOTE | 2025-06-17 15:48 | DVHPN2 ---
Consult Progress Note Subjective Other Systems: Patient remains in V paced rhythm on cardiac Objective vital signs Vital Sign Date Time Temp Pulse Resp B/P (MAP) Pulse Ox O2 Delivery O2 Flow Rate FiO2 06/17/25 15:03 118 115/80 06/17/25 08:32 97.7 18 92 97.7 06/17/25 08:05 Room Air* 0 21 Total Intake and Output 06/16/25 06/16/25 06/17/25 15:00 23:00 07:00 Intake Total 50 ml 845 ml 305 ml Output Total 2 ml 1106 ml Balance 50 ml 843 ml -801 ml medications Current Medications Medications Dose Ordered Sig/Estefania Route Start Time Stop Time Status Last Admin Dose Admin Sodium Chloride 1,000 ml @ 60 mls/hr [id number] IV 06/15/25 16:45 06/17/25 11:08 60 MLS/HR Acetaminophen/ Hydrocodone Bitart 1 tab Q4HP PRN PO 06/15/25 16:45 Ondansetron HCl 4 mg Q4HP PRN IV 06/15/25 16:45 Hold Docusate Sodium 100 mg BIDPRN PRN PO 06/15/25 16:45 Acetaminophen 650 mg Q6HP PRN PO 06/15/25 16:45 Morphine Sulfate 2 mg Q4HPRN PRN IV 06/15/25 17:15 Nitroglycerin 0.4 mg Q5MINP PRN SL 06/15/25 16:45 Morphine Sulfate 2 mg Q30M PRN IV 06/15/25 17:30 Ceftriaxone Sodium 50 ml @ 100 mls/hr DAILY@09 IV 06/15/25 17:30 06/17/25 09:31 100 MLS/HR Amiodarone HCl 200 mg Q12HR PO 06/16/25 10:00 06/17/25 09:31 200 MG Lisinopril 2.5 mg DAILY PO 06/17/25 10:00 06/17/25 09:32 2.5 MG Spironolactone 25 mg DAILY PO 06/17/25 10:00 06/17/25 09:31 25 MG Furosemide 20 mg BIDD IV 06/16/25 18:00 06/17/25 05:38 20 MG Alprazolam 0.25 mg Q12HP PRN PO 06/16/25 17:30 UNV Alprazolam 0.25 mg Q12HP PRN PO 06/16/25 17:30 06/16/25 17:41 0.25 MG Carvedilol 6.25 mg Q12HR PO 06/17/25 22:00 Examination: GENERAL:Abnormal (Generalized weakness), LUNGS:Normal, CVS:Normal, NEURO:Abnormal (Periods of confusion) laboratory and microbiology Laboratory Tests 06/16/25 05:57 Test 06/16/25 05:57 Range/Units Serum Glucose 93 74-106 mg/dL Problem List/Assessment/Plan Problem List/Assessment/Plan V-paced rhythm Acute on chronic decompensated HFrEF, NYHA class III Presence of biventricular ICD (Medtronic) Hypertension Dyslipidemia Tricuspid valve regurgitation, moderate degree Urinary tract infection HX of TIA Dementia Plan/Recommendations (Dr. Peguero): * Echocardiogram to evaluate cardiac function * Previous transthoracic echocardiogram from 10/07/2024 reveals an EF of 10- 15% with biatrial and biventricular enlargement * Preload and afterload reduction as tolerated * Strict intake and output, daily weights, maintain fluid restriction * Continue GDMT for CHF and uptitrate as tolerated * Hold SGLT2i (Jardiance) at this time given UTI * Bi-Ventricular AICD interrogation with Medtronic: No events noted with normal functioning device. Patient has remaining EZ of 11 months and should follow up with his primary financial internship in the outpatient setting upon discharge. * Close telemetry monitoring * Antibiotics per primary care team Patient noted to have episodes of tachycardia. At the time of assessment, the patient is in a controlled rate with V paced rhythm. Tachycardia likely in the setting of underlying UTI. Thank you for allowing us to participate in this patient's care. Please call if you have any questions or concerns. This medical document was created using an electronic medical record system with voice recognition software and computerized dictation system. Although this document has been carefully reviewed, there might still be some phonetic and typographical errors. Occasional wrong-word or ``sound-alike substitutions may have occurred due to the inherent limitations of voice recognition software. These areas are purely typographical due to imperfections of the software programs and do not reflect any compromise in the patient's medical care. Please read the chart carefully and recognize, using context, where these substitutions have occurred. Plan discussed with: Patient Date of Service: Jun 17, 2025 Billing Provider: ARTEM MORALES Common Visit Codes: [id number] INP/OBS CARE(HIGH) ARTEM MORALES Jun 17, 2025 15:48
[2025-06-17] MEDS ORDERED: CARVEDILOL 3.125 MG TAB PO SCH (22:00)
--- NOTE | 2025-06-19 14:08 | DVHSR ---
APPROVED REPORT EXAM: Two-dimensional and M-mode echocardiogram with Doppler and color Doppler. Blood Pressure: 154/84 mmHg INDICATION RE-EVALUATE CARDIAC FUCTION RISK FACTORS Obesity: Height: 6'0, Weight: 214 DIMENSIONS LVDd7.2 (3.8-5.7cm)LA (2D)3.1 (1.9-4.0cm)Aortic Root (2.0-3.7cm) LVDs7.0 (2.5-4.0cm)LA (MM) (1.9-4.0cm)Aortic Cusp Exc (1.5-2.0cm) EF (%) 7.0 (55-70%)Rt. Atrium5.2 (1.9-4.0cm)Asc. Aorta3.5 cm IVSd0.6 (0.7-1.1cm)RV (D)6.0 (1.8-2.4cm) PWd0.7 (0.7-1.1cm) Mitral Valve MitralMitral Stenosis E wave1.06m/sMV Mean GR.1mmHg A wavem/sMV Peak GR.0mmHg E/A ratio0.02D MVAcm2 DECEL [id number] 1/2 Timems Aortic Valve Aortic ValveAortic Stenosis V10.33m/Abram Mean GR.mmHg V20.88m/Abram Peak GR.3mmHg LVOT Diameter2.6 (1.8-2.4cm)Doppler AVA1.99cm2 Tricuspid Valve TR Velocity3.01m/s [id number] Other Information Technically limited study due to patient position.patient moving. Conclusion Technically good study. Undetermined rhythm. Biatrial enlargement. Notable LV enlargement. Valves appear to be structurally normal. Mildly thickened anterior and posterior mitral leaflet with diminished excursion secondary to poor cardiac output. Right ventricular function is diminished. Left ventricular function is markedly diminished. EF is a pproximately 10% with severe global hypokinesis to akinesis. Moderate mitral insufficiency. Moderate tricuspid regurgitation with notable pulmonary hypertension. No pericardial effusion masses or vegetations.
== END 2025-06-17 19:00 | disposition home health service (06) | DRG 291 ==
LOC: ER 10:39 → OVERFLOW 16:34 → TELE-CENTR 22:42
PROVIDERS: ADMIT Internal Medicine; ATTEND Internal Medicine
PROC: 4B02XTZ Measurement of Cardiac Defibrillator, External Approach (ICD-10-PCS; principal; 2025-06-17)
DX: I11.0 Hypertensive heart disease with heart failure (principal); G93.41 Metabolic encephalopathy; I50.23 Acute on chronic systolic (congestive) heart failure; N30.00 Acute cystitis without hematuria; F03.93 Unspecified dementia, unspecified severity, with mood disturbance; F03.94 Unspecified dementia, unspecified severity, with anxiety; E78.5 Hyperlipidemia, unspecified; B96.89 Other specified bacterial agents as the cause of diseases classified elsewhere; F32.A Depression, unspecified; I07.1 Rheumatic tricuspid insufficiency; F42.9 Obsessive-compulsive disorder, unspecified; Z20.822 Contact with and (suspected) exposure to COVID-19; Z85.46 Personal history of malignant neoplasm of prostate; Z86.73 Personal history of transient ischemic attack (TIA), and cerebral infarction without residual deficits; Z87.891 Personal history of nicotine dependence; Z95.810 Presence of automatic (implantable) cardiac defibrillator; Z45.02 Encounter for adjustment and management of automatic implantable cardiac defibrillator; Z88.2 Allergy status to sulfonamides; Z79.899 Other long term (current) drug therapy
CPT/HCPCS: 36415; 71045; 80048; 80061; 81001; 83036; 83735; 83880; 84443; 85025; 86803; 87086; 87088; 87186; 87340; 87426; 87804; 93005; 93306; 97110; 97116; 97163; G0378